=== PATIENT | female | born 1990 | race Caucasian/White ===

== ENCOUNTER 2019-02-28 06:07 | Day surgery (SDC) | payer MEDICAID ==
[2019-02-28] VITALS (11 sets, daily range): BP systolic 123–144; BP diastolic 69–97
[~2019-02-28] VITALS: Ht 162.6 cm; Wt 82.4 kg
[~2019-02-28 06:07] MED LIST: AMOX-358 PO; DOCU100C37 PO; IBUP-1780 PO; OXYC-465 PO
[2019-02-28] MEDS ORDERED: LACTATED RINGERS 1,000 ML IV PRN (06:16)
[2019-02-28] MEDS ORDERED: SEVOFLURANE (ULTANE) 15 ML INHAL SOLN ONE ×5 (06:49→08:16)
[2019-02-28] MEDS ORDERED: proPOfol 200 MG/20 ML (DIPRIVAN) VIAL IV ONE (06:49)
[2019-02-28] MEDS ORDERED: ONDANSETRON 4 MG/2 ML (SDV) Z0FRAN ONE (06:49)
[2019-02-28] MEDS ORDERED: MIDAZOLAM 2 MG/2 ML (VERSED) VIAL ONE (06:49)
[2019-02-28] MEDS ORDERED: LIDOCAINE PF 2% 5 ML (XYLOCAINE) VIAL ONE (06:49)
[2019-02-28] MEDS ORDERED: fentaNYL INJECTION 100 MCG/2 ML AMP ONE (06:49)
[2019-02-28] MEDS ORDERED: DEXAMETHASONE 10 MG/ML (DECADRON) 1 ML VIAL ONE (06:49)
[2019-02-28] MEDS ORDERED: DOXYCYCLINE INJECTION 100 MG in NS (IVPB) 100 ML IV ONE (07:00)
--- NOTE | 2019-02-28 07:08 | Progress Note-Pre Operative ---
Pre-Operative Progress Note H&P Reviewed The H&P was reviewed, patient examined and no changes noted. Date Seen by Provider: Feb 28, 2019 Time Seen by Provider: 07:10 Date H&P Reviewed: Feb 28, 2019 Time H&P Reviewed: 07:00 Pre-Operative Diagnosis: 17 week IUFD YAMILET BERRY DO Feb 28, 2019 07:08
[2019-02-28] MEDS ORDERED: D5 LR IV SOLUTION 1,000 ML IV SCH (07:12)
[2019-02-28] MEDS ORDERED: KETOROLAC 30 MG/ML VIAL IVP ONE (07:15)
[2019-02-28] MEDS ORDERED: HYDROcodone/APAP 5 MG/325 MG (LORTAB) TAB PO PRN (07:15)
[2019-02-28] MEDS ORDERED: ONDANSETRON 4 MG/2 ML (SDV) Z0FRAN IVP PRN ×2 (07:15→08:00)
[2019-02-28] MEDS ORDERED: HYDR-4226 PO (07:17)
[2019-02-28] MEDS ORDERED: ALPR0.5T PO (07:17)
[2019-02-28] MEDS ORDERED: IBUP-1773 PO (07:17)
--- NOTE | 2019-02-28 07:18 | Discharge Inst-Women's Service ---
Discharge Inst-Women's Serv Depart Medication/Instructions New, Converted or Re-Newed RX: RX on Chart Problems Reviewed?: Yes Consults/Follow Up Additional Follow Up: Yes Orders/Referrals Dr. Berry in 2-3 weeks Activity Activity: Activity as Tolerated Driving Instructions: No Driving for 1 Week (do not drive while taking Xanax or Hydrocodone) NO SMOKING: NO SMOKING Nothing Inside Vagina: No Douching, No [place], No Tampons Diet Discharge Diet: No Restrictions Symptoms to Report to : Bleeding Excessive, Pain Increased, Fever Over 101 Degrees F, Vaginal Bleeding Increase, Questions/Concerns For Any Problems or Questions: Contact Your Physician YAMILET BERRY DO Feb 28, 2019 07:18
[2019-02-28] MEDS ORDERED: METHYLERGONOVINE 0.2 MG/ML (METHERGINE) AMP ONE ×2 (07:33→07:36)
[2019-02-28] MEDS ORDERED: CARBOPROST (HEMABATE) 250 MCG/ML AMP IM ONE ×2 (07:33→07:36)
[2019-02-28] MEDS ORDERED: fentaNYL INJECTION 100 MCG/2 ML AMP IVP ONE (08:00)
[2019-02-28] MEDS ORDERED: MEPERIDINE (DEMEROL) INJ 50 MG/ML IVP ONE (08:00)
[2019-02-28] MEDS ORDERED: morphine INJ 10 MG/ML 1ML (SYR OR VIAL) IVP ONE (08:00)
[2019-02-28] MEDS ORDERED: OXYTOCIN PRE-MIX DRIP 500 ML IV SCH (08:15)
--- NOTE | 2019-02-28 15:52 | OPERATIVE REPORT ---
DATE OF SERVICE: 02/28/2019 PREOPERATIVE DIAGNOSIS: A 29-year-old female with 17-week intrauterine demise. POSTOPERATIVE DIAGNOSIS: A 29-year-old female with 17-week intrauterine demise. PROCEDURE: Dilatation and evacuation of demise . SURGEON: Yamilet Berry DO ANESTHESIA: General endotracheal. ESTIMATED BLOOD LOSS: 750 mL. URINE OUTPUT: 50 mL, clear drained at the start of the procedure. FLUIDS: 850 mL of lactated Ringer's solution. FINDINGS: Products of conception consistent with a 17-week fetus. Grossly normal appearing external female genitalia, vagina and cervix. SPECIMEN SENT: Products of conception including placenta and fetus, which was removed. INDICATIONS FOR PROCEDURE: This 29-year-old female is a patient, who was following care in my office. She had an abnormal quad screen and inconclusive free cell DNA testing performed at approximately 15 weeks. Due to this abnormal finding, she was sent to [facility] for further evaluation and offering of amniocentesis. At her consultation appointment at , there was found to be an intrauterine demise and no cardiac activity noted. They discussed with her as well as I did proceeding with genetics testing for suspicion of underlying Efubh-Yaogo-Wxcpg syndrome or possibility of aneuploidy. The patient declined this testing and was again offered in my office when I saw her three days later. She just wished to proceed with removal of the . We also discussed more conservative management, which would be an admission for passing of the under anesthesia including oral Cytotec dosing. The patient opted out of this and wanted to proceed with D and E despite slightly higher risk of bleeding and complication. After all of her questions were answered and consent was obtained in the preoperative area, the patient was taken to the operating room. OPERATIVE REPORT IN DETAIL: Once in the operating room, anesthesia was found to be adequate. She was placed in dorsal lithotomy position, prepped and draped in normal sterile fashion. A timeout was performed. I first emptied the bladder using straight catheterization and proceeded with placing a weighted speculum into the patient's vagina. A right angle retractor was used to visualize the cervix. It was grasped at 12 o'clock position using a long Allis clamp. I then gently dilated the cervix using Vanessa dilators to a maximum dilatation of 18 mm. Once it is dilated to this size, I proceeded with passing a curved ring forcep into the intrauterine cavity and began by removing the placenta and the components. They do not come out all in one piece and this has to be down in separate pieces. However, I am able to confirm calvarium, abdomen, lower torso, bilateral lower extremities and bilateral upper extremities. After the entirety of the fetus was removed, reevaluation of the endometrial cavity does show some bogginess, 250 mcg of Hemabate and 0.2 mg of Methergine are given IM, which helped significantly with the bleeding. I also started the patient on 30 units of Pitocin in a 500 mL bag and this was ran wide open. During this, the bleeding does slowly subside and the uterine fundus does come down to approximately an 8 to 10 week size during the process. Once the bleeding slows down, I did go ahead and placed two ligation sutures at 3 and 9 o'clock position using 0 Vicryl suture to slow down the uterine blood flow after which bleeding has slowed to a significantly slow trickle. At which point, I proceeded with a gentle curettage using a sharp endometrial curette. Actually, I also did two passes with the Warren suction curette of 12 mm at that point in order to clear any residual products of conception, which are not found. After this, there was little to no bleeding noted and all the instruments were removed from the patient's vagina. The patient tolerated the procedure well and sent to recovery in stable condition. Lap and sponge counts were correct at the end of the procedure. Instrument counts were correct as well. 100 mg of doxycycline was given preoperatively for infection prophylaxis. Job ID: [id number] DocumentID: [id number] Dictated Date: 02/28/2019 11:55:59 Engineering Specialist Technician Date: 02/28/2019 15:51:30 Dictated By: YAMILET BERRY DO
--- NOTE | 2019-02-28 15:53 | Anesthesia-General Post-Op ---
General Patient Condition Mental Status/LOC: Same as Preop Cardiovascular: Satisfactory Nausea/Vomiting: Absent Respiratory: Satisfactory Pain: Controlled Complications: Absent Post Op Complications Complications None Follow Up Care/Instructions Patient Instructions None needed. Anesthesia/Patient Condition Patient Condition Patient is doing well, no complaints, stable vital signs, no apparent adverse anesthesia problems. No complications reported per nursing. IVELISSE NARVAEZ CRNA Feb 28, 2019 15:53
--- OUTSIDE RECORDS SUMMARY | 2019-03-22 21:56 | XMS REPORT ---
Author Author MARILUZ MARC POS Organization [facility] SP Address [address] [place] [address] SP Care Team Providers Care Emt Basic Name Role Phone POS NESSA MARCA Unavailable SP PROBLEMS Type Condition ICD9-CM Code WIC06-MW Code Onset Dates Condition S tatus SNOMED POS Problem Anxiety F41.9 Active 99232410 POS Problem Other obesity due to excess calories E66.09 Active [id number] SP Problem Body mass index (BMI) of 32.0-32.9 in adult Z68.32 Active [id number] SP ALLERGIES No Information ENCOUNTERS Encounter Location Date Diagnosis POS [facility] [address] [id number] [address] [place] [id number] SP Jan, Viral upper respiratory infe ction J06.9 and Impacted cerumen of SP ears H61.23 [facility] [address] [id number] [address] [place] [address] SP Nov, Acute bilateral back pain, u nspecified back location M54.9 SP [facility] [address] [id number] [address] [place] [address] SP Oct, Heart palpitations R00.2 [facility] [address] [id number] [address] [place] [id number] SP Aug, Anxiety F41.9 ; Heart palpit ations R00.2 ; Marijuana use in SP F12.90 ; Other obesity due to excess calories E66.09 and Body mass index (BMI) of 32.0-32.9 in adult Z68.32 [facility] [address] [facility] [id number] [address] [place] [address] SP Jun, Heart palpitations R00.2 [facility] [address] [facility] [id number] [address] [place] [id number] SP Feb, Encounter for dental examina tion and cleaning without abnormal SP Z01.20 [facility] [address] [id number] [address] [place] [id number] SP Nov, Dental examination Z01.20 SP [facility] [address] [id number] [address] [place] [id number] SP Nov, Dental examination Z01.20 SP [facility] [address] [id number] [place] [id number] SP Mar, Encounter for dental examina tion Z01.20 SP [facility] [address] [id number] SP Jan, SP [facility] [id number] [place] [phone] SP Oct, Social anxiety disorder 300. 23 and Attention deficit disorder SP [facility] [address] [id number] SP September, SP [facility] [address] [id number] SP September, Social anxiety disorder 300. 23 and Attention deficit disorder SP [facility] [address] [phone] SP September, School physical exam V70.5 a nd Screening for tuberculosis V74.1 SP [facility] [address] [phone] SP September, Major depression, recurrent 296.30 ; Anxiety 300.00 and No SP on [place] V71.09 [facility] [address] [phone] SP Aug, SP [facility] [id number] [place] [phone] SP Aug, SP [facility] [address] [id number] SP Jul, SP [facility] [address] [id number] [address] [place] [address], [place] [address] SP Jul, SP [facility] [address] [id number] [address] [place] [address], [place] [address] SP Jul, SP [facility] [address] [id number] [address] [place] [address], [place] [address] SP Jul, SP [facility] [address] [id number] [address] [place] [address], [place] [address] SP Jul, SP [facility] [address] [id number] [address] [place] [address], [place] [address] SP Jul, SP [facility] [address] [id number] [address] [place] [address], [place] [address] SP Jul, SP [facility] [address] [id number] [address] [place] [address], [place] [address] SP Jul, SP [facility] [address] [id number] [address] [place] [address], [place] [address] SP Jul, SP [facility] [address] [id number] [address] [place] [address], [place] [address] SP Jul, SP [facility] [address] [id number] [address] [place] [address], [place] [address] SP Jul, SP [facility] [address] [id number] [address] [place] [address], [place] [address] SP Jul, SP [facility] [address] [id number] [address] [place] [address], [place] [address] SP Jul, SP [facility] [address] [id number] [address] [place] [address], [place] [address] SP Jun, SP [facility] [address] [id number] [address] [place] [address], [place] [address] SP Jun, SP [facility] [address] [id number] [address] [place] [address], [place] [address] SP Jun, 2014 SP [facility] [address] [id number] [address] [place] [address], [place] [address] SP Jun, 2014 SP [facility] [address] [id number] [address] [place] [address], [place] [address] SP Jun, 2014 SP [facility] [address] [id number] [address] [place] [address], [place] [address] SP Jun, 2014 SP [facility] [address] [id number] [address] [place] [address], [place] [address] SP Jun, 2014 SP [facility] [address] [id number] [address] [place] [address], [place] [address] SP Jun, 2014 SP [facility] [address] [id number] [address] [place] [phone] SP Jun, 2014 SP [facility] [address] [id number] [address] [place] [address], [place] [address] SP Jun, SP [facility] [address] [id number] [address] [place] [address], [place] [address] SP May, SP [facility] [address] [id number] [address] [place] [phone] SP May, SP [facility] [address] [id number] [address] [place] [id number] SP May, SP [facility] [address] [id number] [address] [place] [phone] SP May, SP [facility] [address] [id number] [address] [place] [address], [place] [address] SP Jan, SP [facility] [address] [id number] [address] [place] [id number] SP Jan, SP [facility] [address] [id number] [address] [place] [id number] SP Aug, SP [facility] [address] [id number] [address] [place] [address], [place] [address] SP Aug, SP [facility] [address] [id number] [address] [place] [address], [place] [address] SP Aug, SP [facility] [address] [id number] [address] [place] [address], [place] [address] SP Aug, SP [facility] [address] [id number] [address] [place] [address], [place] [address] SP May, SP [facility] [address] [id number] [address] [place] [address], [place] [address] SP May, SP [facility] [address] [id number] [address] [place] [address], [place] [address] SP Feb, SP [facility] [address] [id number] [address] [place] [address], [place] [address] SP Feb, SP [facility] [address] [id number] [address] [place] [address], [place] [address] SP Feb, SP [facility] [address] [id number] [address] [place] [address], [place] [address] SP Feb, SP [facility] [address] [id number] [address] [place] [address], [place] [address] SP Feb, SP [facility] [address] [id number] [address] [place] [address], [place] [address] SP Dec, SP [facility] [address] [id number] [address] [place] [address], [place] [address] SP Oct, SP [facility] [address] [id number] [address] [place] [address], [place] [address] SP September, SP [facility] [address] [id number] [address] [place] [address], [place] [address] SP Aug, SP [facility] [address] [id number] [address] [place] [phone] SP Nov, SP [facility] [address] [facility] [id number] [address] [place] [phone] SP Nov, SP [facility] [address] [facility] [id number] [address] [place] [phone] SP Nov, SP IMMUNIZATIONS No Known Immunizations SOCIAL HISTORY Never Assessed REASON FOR VISIT PLAN OF CARE VITAL SIGNS MEDICATIONS No Known Medications RESULTS No Results PROCEDURES No Known procedures INSTRUCTIONS MEDICATIONS ADMINISTERED No Known Medications MEDICAL (GENERAL) HISTORY Type Description Date POS Medical History anxiety SP Hospitalization History healthy 2015 SP
--- OUTSIDE RECORDS SUMMARY | 2019-03-22 21:56 | XMS REPORT | Encounter Summary ---
Author Author [facility] POS Organization [facility] SP Address Unknown SP Phone Unavailable SP Care Team Providers Care Heel Attacher Name Role Phone POS No Pcp, Na PCP Unavailable SP Reason for Visit * Reason Comments POS High Risk SP Problem SP Ultrasound SP Encounter Details Care Team Description POS Date Type Department SP SP Jose Martel MD [address] [facility] [address] [place] [address] Abnormal findings on screening (Primary Dx); SPFetal demise before 20 weeks with retention of fetus 02/27/2019 Office Visit [facility] SP [address] SP Level [address] [place] [phone] SP [phone] SP Social History Date POS Tobacco Use Types Packs/Day Years Used SP SP Never Assessed SP Sex Assigned at Date Recorded SP Not on file SP Industry POS Job Start Date Occupation SP Not on file SP Not on file Not on file SP Travel End POS Travel History Travel Start SP No recent travel history available. SP documented as of this encounter Progress Notes * Jose Martel MD - 02/23/2019 11:00 AM CDT MFM CONSULT Patient seen and interviewed. Relevant health histories obtained. Referred by Dr Vasquez after a QUAD returned with a 1:5 risk for Trisomy 18 and an increased risk for Bvjjs-Vqcmm-Kurrd Syndrome. IUFD discovered today associated with israel y onset IUGR. The couple was understandably sad and stunned. I spent more than 45min face to face independent of scan time discussing the findings and the lik sadie presence of aneuploidy along with its implication for future pregnancies. W morgan discussed the options going forward. I suggested a D&E with testing of material with a microarray. I offered to make the arrangements, but the couple preferred to return home and think about it over the weekend. Telephone numbers provided. Please let us know if we can be of any assistance. documented in this encounter Plan of Treatment Not on filedocumented as of this encounter Visit Diagnoses Diagnosis POS Abnormal findings on screenin g - Primary SP demise before 20 weeks with reten tion of fetus SP documented in this encounter
--- OUTSIDE RECORDS SUMMARY | 2019-03-22 21:56 | XMS REPORT | Encounter Summary ---
Author Author [facility] POS Organization [facility] SP Address Unknown SP Phone Unavailable SP Care Team Providers Care Clinical Mental Health Counselor Name Role Phone POS No Pcp, Na Unavailable Unavailable SP No Pcp, Na PCP Unavailable SP Reason for Visit * Reason Comments POS Ultrasound SP * Consult, Test & Treat (Routine) Referred By Contact Referred To Contact POS Status Reason Specialty Diagnoses / SP Procedures SP SP SP [employer] [facility] [address] [place] [address] Closed High Risk Diagnoses SP ABNORMAL QUAD SP +TRISOMY 18 SP P SP rocedures SP GENETICS-NEW SP CONSULT SP Encounter Details Care Team Description POS Date Type Department SP SP Jose Martel MD [address] [facility] Lvl [address] [place], [place] [id number] Abnormal findings on screening (Primary Dx); SPMaternal care for (suspected) chromosomal abnormality in fetus, not applicable or unspecified; Encounter for screening for malformations 02/23/2019 Clinical [facility] SP [address] SP [address] [place] [phone] SP [phone] SP Social History Date POS Tobacco Use [...] as of this encounter Progress Notes * Viviana Viera - 02/23/2019 10:30 AM CDT Aspen Alex presents for an ultrasound encounter. Past Medical, Surgical, Family & Social History; Medications & Allergies contained in the electronic record below were not reviewed today and may not be up-to-date. Please see A/S OBGYN report for all documentation related to this encounter. 02/23/2019 Viviana Viera documented in this encounter Plan of Treatment Not on filedocumented as of this encounter Procedures Comments POS Procedure Name Priority Date/Time Associated Diag nosis SP SP ULTRASOUND [facility] Routine 02/23/2019 Abnorma l findings on SP ORDER 10:01 AM CDT screening SP Maternal care for SP (suspected) chromosomal SP abnormality in fetus, not SP applicable or unspecified SP Encounter for SP screening for SP malformations SP documented in this encounter Results * ULTRASOUND [facility] ORDER (02/23/2019 10:01 AM CDT) Specimen POS Impressions Performed At SP IMPRESSION: [facility] SP Femur length consistent with 17 weeks 2 days, SP compared to 20 weeks 0 days by RASHAAD. SP No or cardiac activity visualized . SP Ultrasound findings demonstrative of fe penelope demise. SP SP RECOMMENDATIONS: SP Repeat as clinically indicated. SP Thank-you for allowing us to participat e in the care of SP your patient.If you have any questi ons regarding this SP visit, please do not hesitate to call. SP Narrative Performed At [facility] SP SP OBSTETRICS REPORT (Signed Final 02/27/2019 SP 12:10 pm) SP SP PATIENT INFO: SP ID #: [id number] TOBIAS :[birth year] (29 yrs)(F) SP Name: ASPEN ALEX Visit Date: SP 02/23/2019 10:01 am SP SP PERFORMED BY: SP Performed By: Viviana COLLADO Attending:Jose COLLADO Referred By:Yonas Vasquez MD SP Ref. 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 Location: Intraut erine SP Cardiac Activity: Not Obser kaia SP Presentation: Cepha lic SP Placenta: P osterior SP SP BIOMETRY: SP FL: 24.1mm G.Ag e: 17w 2d < 3% SP HUM:22.6mm G.Ag e: 17w 0d < 5% SP SP GESTATIONAL AGE: SP Clinical RASHAAD:20w SP 0d RASHAAD: SP 07/13/19 SP U/S Today: 17w SP 2d RASHAAD: SP 08/01/19 SP Best:20w 0d Det . By:Clinical RASHAAD SP RASHAAD: 07/13/19 SP SP COMMENTS: SP MFM CONSULT SP Patient seen and interviewed.[facility] SP histories obtained.Referred by Dr Gustavo pepper after a SP QUAD returned with a 1:5 risk for Triso my 18 and an SP increased risk for Otjwa-Osika-Agixz Sy ndrome.IUFD SP discovered today associated with early onset IUGR. SP The couple was understandably sad and s tunned.I SP spent more than 45min face to face inde pendent of SP scan time discussing the findings and t he likely SP presence of aneuploidy along with its i mplication for SP future pregnancies.We discussed the options going SP forward.I suggested a D&E with test ing of material SP with a microarray.I offered to make the arrangements, SP but the couple preferred to return home and think about SP it over the weekend.Telephone numbe rs provided. SP Please let us know if we can be of any assistance. SP Procedure orders were added/modified by the SP attending physician listed above with p ermission from SP the referring physician. Previously ent ered orders will SP not be altered. SP SP SP Jose Martel M.D. SP Electronically Signed Final Report 02/27/2019 12:10 pm SP SP Performing Organization Address City/State[facility] Ph one Number SP [facility] [id number] [facility], [address] [place] [address] SP documented in this encounter Visit Diagnoses Diagnosis POS Abnormal findings on screenin g - Primary SP Maternal care for (suspected) chromosom al abnormality in fetus, not applicable SP unspecified Encounter for screening for m alformations SP documented in this encounter
--- OUTSIDE RECORDS SUMMARY | 2019-03-22 21:56 | XMS REPORT | Clinical Summary ---
Author Author [facility] POS Organization [facility] SP Address Unknown SP Phone Unavailable SP Care Team Providers Care Pathology Assistant Name Role Phone POS No Pcp, Na PCP Unavailable SP Source Comments Some departments are not documenting in the electronic medical record. 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 02/27/2019 Office Visit High Risk SP SP Jose Martel MD Abnormal findings on screening (Primary Dx); SPMaternal care for (suspected) chromosomal abnormality in fetus, not applicable or unspecified; Encounter for screening for malformations 02/23/2019 Clinical High Risk SP Support SP from Last 3 Months Social History Date POS Tobacco Use Types Packs/Day Years Used SP SP Never Assessed SP Sex Assigned at Date Recorded SP Not on file SP Industry POS Job Start Date Occupation SP Not on file SP Not on file Not on file SP Travel End POS Travel History Travel Start SP No recent travel history available. SP Last Filed Vital Signs Not on file Plan of Treatment Health Maintenance Due Date Last Done Comments POS HIV SCREENING 01/31/2007 SP HPV VACCINES (3 - Female 05/23/2009 01/21/2009, 0 11/20/2008 SP 3-dose series) SP DTAP/TDAP VACCINES (1 - 01/31/2010 SP Tdap) SP PHYSICAL (COMPREHENSIVE) 01/31/2010 SP EXAM SP CERVICAL CANCER SCREENING 01/31/2013 SP INFLUENZA VACCINE 12/14/2018 SP Procedures Comments POS Procedure Name Priority Date/Time Associated Diag cherrie COLLADO SP [facility] Routine 02/23/2019 Abnorma l findings on SP ORDER 10:01 AM CDT screening SP Maternal care for SP (suspected) chromosomal SP abnormality in fetus, not SP applicable or unspecified SP Encounter for SP screening for SP malformations SP from Last 3 Months Results * ULTRASOUND [facility] ORDER (02/23/2019 10:01 AM CDT) Specimen POS Impressions Performed At IMPRESSION: [facility] RESULTS SP Femur length consistent with 17 [...] SP SP PATIENT INFO: SP ID #: [id number] SP :[birth year] (29 yrs)(F) SP Name: ASPEN ALEX Visit Date: SP 02/23/2019 10:01 am SP SP PERFORMED BY: SP Performed By: Viviana COLLADO Attending:Jose Martel M.D. SP Referred By:Yonas Vasquez MD SP Ref. 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 Location: Intraut erine SP Cardiac Activity: Not Obser kaia SP Presentation: Winston COLLADO Placenta: P osterioleti SP SP BIOMETRY: SP FL: 24.1mm G.Ag e: 17w 2d < 3% SP HUM:22.6mm G.Ag e: 17w 0d < 5% SP SP GESTATIONAL AGE: SP Clinical RASHAAD:20w SP 0d RASHAAD: SP 07/13/19 SP U/S Today: 17w SP 2d RASHAAD: SP 08/01/19 SP Best:20w 0d Det . By:Clinical RASHAAD SP RASHAAD: 07/13/19 SP SP COMMENTS: SP MFM CONSULT SP Patient seen and interviewed.[facility] SP histories obtained.Referred by Dr Gustavo pepper after a SP QUAD returned with a 1:5 risk for Triso my 18 and an SP increased risk for Xqqza-Quzfq-Lkmjx Sy ndrome.IUFD SP discovered today associated with [...] 12:10 pm SP SP Performing Organization Address City/State/[facility] Ph one Number SP [facility] [address] [place] [address], [place] [address] SP from Last 3 Months Insurance Type POS Payer Benefit Subscriber ID Effective Phone Address SP Plan / Dates SP Group SP Medicaid SP [facility] MEDICAID [facility] xxxxxxxxxxx 2018-P SP COMMUNITY resent SP PLAN MA SP SP Advance Directives 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
--- OUTSIDE RECORDS SUMMARY | 2019-03-22 21:56 | XMS REPORT ---
Author Author MARILUZ MARC POS Organization [facility] SP Address [address] [place] [address] SP Care Team Providers Care Communications Technician Name Role Phone POS NESSA MARCA Unavailable SP PROBLEMS Type Condition ICD9-CM Code WCL90-VA Code Onset Dates Condition S tatus SNOMED POS Problem Anxiety F41.9 Active 56597399 POS Problem Other obesity due to excess calories E66.09 Active 404753427 SP Problem Body mass index (BMI) of 32.0-32.9 in adult Z68.32 Active 794242367 SP ALLERGIES No Information ENCOUNTERS Encounter Location Date Diagnosis POS [facility] [address] [id number] [address] [place] [phone] SP Jan, Viral upper respiratory infe ction J06.9 and Impacted cerumen of SP ears H61.23 [facility] [address] [id number] [address] [place] [address] SP Nov, Acute bilateral back pain, u nspecified back location M54.9 SP [facility] [address] [id number] [address] [place] [address] SP Oct, Heart palpitations R00.2 [facility] [address] [id number] [address] [place] [phone] SP Aug, Anxiety F41.9 ; Heart palpit ations R00.2 ; Marijuana use in SP F12.90 ; Other obesity due to excess calories E66.09 and Body mass index (BMI) of 32.0-32.9 in adult Z68.32 [facility] [address] [facility] [id number] [address] [place] [address] SP Jun, Heart palpitations R00.2 [facility] [address] [facility] [id number] [address] [place] [address] [id number] SP Feb, Encounter for dental examina tion and cleaning without abnormal SP Z01.20 [facility] [address] [id number] [address] [place] [id number] SP Nov, Dental examination Z01.20 SP [facility] [address] [id number] [address] [place] [id number] SP Nov, Dental examination Z01.20 SP [facility] [id number] [place] [id number] SP Mar, Encounter for dental examina tion Z01.20 SP [facility] [address] [address] SP Jan, SP [facility] [id number] [place] [address] SP Oct, Social anxiety disorder 300. 23 and Attention deficit disorder SP [facility] [address] [id number] SP September, SP [facility] [address] [address] SP September, Social anxiety disorder 300. 23 and Attention deficit disorder SP [facility] [address] [phone] SP September, School physical exam V70.5 a nd Screening for tuberculosis V74.1 SP [facility] [address] [id number] SP September, Major depression, recurrent 296.30 ; Anxiety 300.00 and No SP on [place] II V71.09 [facility] [address] [id number] SP Aug, SP [facility] [id number] [place] [phone] SP Aug, SP [facility] [address] [address] SP Jul, SP [facility] [address] [id number] [address] [place] [address], [place] [address] SP Jul, SP [facility] [address] [id number] [address] [place] [address], [place] [address] SP Jul, SP [facility] [address] [id number] [address] [place] [address], [place] [address] SP Jul, SP [facility] [address] [id number] [address] [place] [address], [place] [address] SP Jul, SP [facility] [address] [id number] [address] [place] [address], [place] [address] SP Jul, SP [facility] [address] [id number] [address] [place] [address], [place] [address] SP Jul, SP [facility] [address] [id number] [address] [place] [address], [place] [address] SP Jul, SP [facility] [address] [id number] [address] [place] [address], [place] [address] SP Jul, SP [facility] [address] [id number] [address] [place] [address], [place] [address] SP Jul, SP [facility] [address] [id number] [address] [place] [address], [place] [address] SP Jul, SP [facility] [address] [id number] [address] [place] [address], [place] [address] SP Jul, SP [facility] [address] [id number] [address] [place] [address], [place] [address] SP Jul, SP [facility] [address] [id number] [address] [place] [address], [place] [address] SP Jun, SP [facility] [address] [id number] [address] [place] [address], [place] [address] SP Jun, SP [facility] [address] [id number] [address] [place] [address], [place] [address] SP Jun, 2014 SP [facility] [address] [id number] [address] [place] [address], [place] [address] SP Jun, 2014 SP [facility] [address] [id number] [address] [place] [address], [place] [address] SP Jun, 2014 SP [facility] [address] [id number] [address] [place] [address], [place] [address] SP Jun, 2014 SP [facility] [address] [id number] [address] [place] [address], [place] [address] SP Jun, 2014 SP [facility] [address] [id number] [address] [place] [address], [place] [address] SP Jun, 2014 SP [facility] [address] [id number] [address] [place] [address] SP Jun, 2014 SP [facility] [address] [id number] [address] [place] [address], [place] [address] SP Jun, SP [facility] [address] [id number] [address] [place] [address], [place] [address] SP May, SP [facility] [address] [id number] [address] [place] [address] SP May, SP [facility] [address] [id number] [address] [place] [address] SP May, SP [facility] [address] [id number] [address] [place] [address] SP May, SP [facility] [address] [id number] [address] [place] [address], [place] [address] SP Jan, SP [facility] [address] [id number] [address] [place] [address] SP Jan, SP [facility] [address] [id number] [address] [place] [address] SP Aug, SP [facility] [address] [id number] [address] [place] [address], [place] [address] SP Aug, SP [facility] [address] [id number] [address] [place] [address], [place] [address] SP Aug, SP [facility] [address] [id number] [address] [place] [address], [place] [address] SP Aug, SP [facility] [address] [id number] [address] [place] [address], [place] [address] SP May, SP [facility] [address] [id number] [address] [place] [address], [place] [address] SP May, SP [facility] [address] [id number] [address] [place] [address], [place] [address] SP Feb, SP [facility] [address] [id number] [address] [place] [address], [place] [address] SP Feb, SP [facility] [address] [id number] [address] [place] [address], [place] [address] SP Feb, SP [facility] [address] [id number] [address] [place] [address], [place] [address] SP Feb, SP [facility] [address] [id number] [address] [place] [address], [place] [address] SP Feb, SP [facility] [address] [id number] [address] [place] [address], [place] [address] SP Dec, SP [facility] [address] [id number] [address] [place] [address], [place] [address] SP Oct, SP [facility] [address] [id number] [address] [place] [address], [place] [address] SP September, SP [facility] [address] [id number] [address] [place] [address], [place] [address] SP Aug, SP [facility] [address] [id number] [address] [place] [address] SP Nov, SP [facility] [address] [facility] [id number] [address] [place] [address] SP Nov, SP [facility] [address] [facility] [id number] [address] [place] [address] SP Nov, SP IMMUNIZATIONS No Known Immunizations SOCIAL HISTORY Never Assessed REASON FOR VISIT PLAN OF CARE VITAL SIGNS MEDICATIONS No Known Medications RESULTS No Results PROCEDURES No Known procedures INSTRUCTIONS MEDICATIONS ADMINISTERED No Known Medications MEDICAL (GENERAL) HISTORY Type Description Date POS Medical History anxiety SP Hospitalization History healthy 2015 SP
--- OUTSIDE RECORDS SUMMARY | 2019-03-22 21:56 | XMS REPORT ---
Author Author MARILUZ MARC POS Organization [facility] SP Address [facility] [place] [address] SP Care Team Providers Care Butcher Meat Name Role Phone POS MARILUZ MARC Unavailable SP PROBLEMS ALLERGIES No Information ENCOUNTERS IMMUNIZATIONS No Known Immunizations SOCIAL HISTORY No smoking Hx information available REASON FOR VISIT PLAN OF CARE VITAL SIGNS MEDICATIONS No Known Medications RESULTS No Results PROCEDURES INSTRUCTIONS MEDICATIONS ADMINISTERED No Known Medications MEDICAL (GENERAL) HISTORY
--- OUTSIDE RECORDS SUMMARY | 2019-03-22 21:57 | XMS REPORT ---
Author Author MARILUZ MARC POS Organization [facility] SP Address [address] [place] [address] SP Care Team Providers Care Software Test Engineer Name Role Phone POS MARILUZ MARC Unavailable SP PROBLEMS Type Condition ICD9-CM Code RUN48-[place] Code Onset Dates Condition S tatus SNOMED POS Problem Anxiety F41.9 Active 62719778 POS Problem Other obesity due to excess calories E66.09 Active 282737502 SP Problem Body mass index (BMI) of 32.0-32.9 in adult Z68.32 Active 204044198 SP ALLERGIES No Information ENCOUNTERS Encounter Location Date Diagnosis POS [facility] [address] [facility] [id number] [address] [place] [address] SP Nov, Acute bilateral back pain, u nspecified back location M54.9 SP [facility] [address] [facility] [id number] [place] [address] SP Oct, Heart palpitations R00.2 SP [facility] [address] [facility] [id number] [address] [place] [phone] SP Aug, Anxiety F41.9 ; Heart palpit ations R00.2 ; Marijuana use in SP F12.90 ; Other obesity due to excess calories E66.09 and Body mass index (BMI) of 32.0-32.9 in adult Z68.32 [facility] [address] [facility] [id number] [address] [place] [address] SP Jun, Heart palpitations R00.2 SP [facility] [address] [facility] [id number] [address] [place] [address] [id number] SP 05 Feb, 2016 Encounter for dental examina tion and cleaning without abnormal SP Z01.20 [facility] [address] [id number] [address] [place] [id number] SP Nov, Dental examination Z01.20 SP [facility] [address] [id number] [place] [id number] SP Nov, Dental examination Z01.20 SP [facility] [address] [id number] [address] [place] [id number] SP Mar, Encounter for dental examina tion Z01.20 SP [facility] [address] [facility] [id number] [address] [place] [phone] SP Jan, SP [facility] [address] [facility] [id number] [address] [place] [address] SP Oct, Social anxiety disorder 300. 23 and Attention deficit disorder SP [facility] [address] [facility] [id number] [address] [place] [address] SP September, SP [facility] [address] [facility] [id number] [address] [place] [address] SP September, Social anxiety disorder 300. 23 and Attention deficit disorder SP [facility] [address] [facility] [id number] [address] [place] [id number] SP September, School physical exam V70.5 a nd Screening for tuberculosis V74.1 SP [facility] [address] [facility] [id number] [address] [place] [address] SP September, Major depression, recurrent 296.30 ; Anxiety 300.00 and No SP on [place] II V71.09 [facility] [address] [facility] [id number] [address] [place] [phone] SP Aug, SP [facility] [address] [facility] [id number] [address] [place] [address] SP Aug, SP [facility] [address] [facility] [id number] [address] [place] [address] SP Jul, SP [facility] [address] [facility] [id number] [address] [place] [address] SP Jul, SP [facility] [address] [id number] [facility] [place] [address] SP Jul, SP [facility] [address] [id number] [address] [place] [address], [place] [address] SP Jul, SP [facility] [address] [id number] [address] [place] [address], [place] [address] SP Jul, SP [facility] [address] [id number] [address] [place] [address], [place] [address] SP Jul, SP [facility] [address] [id number] [address] [place] [address], [place] [address] SP Jul, SP [facility] [address] [id number] [address] [place] [address], [place] [address] SP Jul, SP [facility] [address] [id number] [address] [place] [address], [place] [address] SP Jul, 2014 SP [facility] [address] [id number] [address] [place] [address], [place] [address] SP Jul, SP [facility] [address] [id number] [address] [place] [address], [place] [address] SP Jul, SP [facility] [address] [id number] [address] [place] [address], [place] [address] SP Jul, SP [facility] [address] [id number] [address] [place] [address], [place] [address] SP Jul, SP [facility] [address] [id number] [address] [place] [address], [place] [address] SP Jun, SP [facility] [address] [id number] [address] [place] [address], [place] [address] SP Jun, 2014 SP [facility] [address] [id number] [address] [place] [address], [place] [address] SP Jun, SP [facility] [address] [id number] [address] [place] [address], [place] [address] SP Jun, 2014 SP [facility] [address] [id number] [address] [place] [address], [place] [address] SP Jun, 2014 SP [facility] [address] [id number] [address] [place] [address], [place] [address] SP Jun, 2014 SP [facility] [address] [id number] [address] [place] [address], [place] [address] SP Jun, 2014 SP [facility] [address] [id number] [address] [place] [address], [place] [address] SP Jun, 2014 SP [facility] [address] [id number] [address] [place] [address], [place] [address] SP Jun, 2014 SP [facility] [address] [id number] [address] [place] [address], [place] [address] SP Jun, 2014 SP [facility] [address] [id number] [address] [place] [address], [place] [address] SP May, SP [facility] [address] [id number] [address] [place] [address], [place] [address] SP May, SP [facility] [address] [id number] [address] [place] [address], [place] [address] SP May, SP [facility] [address] [id number] [address] [place] [address], [place] [address] SP May, SP [facility] [address] [id number] [address] [place] [address], [place] [address] SP Jan, SP [facility] [address] [id number] [address] [place] [address], [place] [address] SP Jan, SP [facility] [address] [id number] [address] [place] [address], [place] [address] SP Aug, SP [facility] [address] [id number] [address] [place] [address], [place] [address] SP Aug, SP [facility] [address] [id number] [address] [place] [address], [place] [address] SP Aug, SP [facility] [address] [id number] [address] [place] [address], [place] [address] SP Aug, SP [facility] [address] [id number] [address] [place] [address], [place] [address] SP May, SP [facility] [address] [id number] [address] [place] [address], [place] [address] SP May, SP [facility] [address] [id number] [address] [place] [address], [place] [address] SP Feb, SP [facility] [address] [id number] [address] [place] [address], [place] [address] SP Feb, SP [facility] [address] [id number] [address] [place] [address], [place] [address] SP Feb, SP [facility] [address] [id number] [address] [place] [address], [place] [address] SP Feb, SP [facility] [address] [id number] [address] [place] [address], [place] [address] SP Feb, SP [facility] [address] [id number] [address] [place] [address], [place] [address] SP Dec, SP [facility] [address] [id number] [address] [place] [address], [place] [address] SP Oct, SP [facility] [address] [id number] [address] [place] [address], [place] [address] SP September, SP [facility] [address] [id number] [address] [place] [address], [place] [address] SP Aug, SP [facility] [address] [id number] [address] [place] [address], [place] [address] SP Nov, SP [facility] [address] [id number] [address] [place] [address], [place] [address] SP Nov, SP [facility] [address] [facility] [id number] [address] [place] [address] SP Nov, SP IMMUNIZATIONS No Known Immunizations SOCIAL HISTORY Never Assessed REASON FOR VISIT PLAN OF CARE VITAL SIGNS MEDICATIONS No Known Medications RESULTS No Results PROCEDURES No Known procedures INSTRUCTIONS MEDICATIONS ADMINISTERED No Known Medications MEDICAL (GENERAL) HISTORY Type Description Date POS Medical History anxiety SP Hospitalization History healthy 2015 SP
--- OUTSIDE RECORDS SUMMARY | 2019-03-22 21:57 | XMS REPORT ---
Author Author Christiano JAYA POS Organization [facility] SP Address [address] [place] [address] SP Care Team Providers Care Activity Aide Name Role Phone POS JAYA Alvarado Unavailable SP PROBLEMS Type Condition ICD9-CM Code [id number] Code Onset Dates Condition S tatus SNOMED POS Problem Anxiety F41.9 Active 15450098 POS Problem Other obesity due to excess calories E66.09 Active 589724857 SP Problem Body mass index (BMI) of 32.0-32.9 in adult Z68.32 Active 221108852 SP ALLERGIES No Information ENCOUNTERS Encounter Location Date Diagnosis POS [facility] [address] [facility] [id number] [address] [place] [address] SP Nov, Acute bilateral back pain, u nspecified back location M54.9 SP [facility] [address] [facility] [id number] [place] [address] SP Oct, Heart palpitations R00.2 SP [facility] [address] [facility] [id number] [address] [place] [address] SP Aug, Anxiety F41.9 ; Heart palpit ations R00.2 ; Marijuana use in SP F12.90 ; Other obesity due to excess calories E66.09 and Body mass index (BMI) of 32.0-32.9 in adult Z68.32 [facility] [address] [facility] [id number] [address] [place] [address] SP Jun, Heart palpitations R00.2 SP [facility] [address] [id number] [address] [place] [address] [id number] SP Feb, Encounter for dental examina tion and cleaning without abnormal SP Z01.20 [facility] [address] [id number] [address] [place] [address] [id number] SP Nov, Dental examination Z01.20 SP [facility] [address] [id number] [address] [place] [address] [id number] SP Nov, Dental examination Z01.20 SP [facility] [address] [id number] [address] [place] [address] [id number] SP Mar, Encounter for dental examina tion Z01.20 SP [facility] [address] [facility] [id number] [address] [place] [phone] SP Jan, SP [facility] [address] [facility] [id number] [address] [place] [phone] SP Oct, Social anxiety disorder 300. 23 and Attention deficit disorder SP [facility] [address] [facility] [id number] [address] [place] [address] SP September, SP [facility] [address] [facility] [id number] [address] [place] [phone] SP September, Social anxiety disorder 300. 23 and Attention deficit disorder SP [facility] [address] [facility] [id number] [address] [place] [phone] SP September, School physical exam V70.5 a nd Screening for tuberculosis V74.1 SP [facility] [address] [facility] [id number] [address] [place] [address] SP September, Major depression, recurrent 296.30 ; Anxiety 300.00 and No SP on [place] II V71.09 [facility] [address] [facility] [id number] [address] [place] [phone] SP Aug, SP [facility] [address] [facility] [id number] [address] [place] [phone] SP Aug, SP [facility] [address] [facility] [id number] [address] [place] [phone] SP Jul, SP [facility] [address] [facility] [id number] [address] [place] [phone] SP Jul, SP [facility] [address] [id number] [facility] [place] [address] SP Jul, SP [facility] [address] [id number] [address] [place] [address], [place] [address] SP Jul, SP [facility] [address] [id number] [address] [place] [address], [place] [address] SP Jul, SP [facility] [address] [id number] [address] [place] [address], [place] [address] SP Jul, SP [facility] [address] [id number] [address] [place] [address], [place] [address] SP Jul, SP [facility] [address] [id number] [address] [place] [address], [place] [address] SP Jul, SP [facility] [address] [id number] [address] [place] [address], [place] [address] SP Jul, SP [facility] [address] [id number] [address] [place] [address], [place] [address] SP Jul, SP [facility] [address] [id number] [address] [place] [address], [place] [address] SP Jul, SP [facility] [address] [id number] [address] [place] [address], [place] [address] SP Jul, SP [facility] [address] [id number] [address] [place] [address], [place] [address] SP Jul, SP [facility] [address] [id number] [address] [place] [address], [place] [address] SP Jun, SP [facility] [address] [id number] [address] [place] [address], [place] [address] SP Jun, SP [facility] [address] [id number] [address] [place] [address], [place] [address] SP Jun, SP [facility] [address] [id number] [address] [place] [address], [place] [address] SP Jun, 2014 SP [facility] [address] [id number] [address] [place] [address], [place] [address] SP Jun, 2014 SP [facility] [address] [id number] [address] [place] [address], [place] [address] SP Jun, 2014 SP [facility] [address] [id number] [address] [place] [address], [place] [address] SP Jun, 2014 SP [facility] [address] [id number] [address] [place] [address], [place] [address] SP Jun, 2014 SP [facility] [address] [id number] [address] [place] [address], [place] [address] SP Jun, 2014 SP [facility] [address] [id number] [address] [place] [address], [place] [address] SP Jun, 2014 SP [facility] [address] [id number] [address] [place] [address], [place] [address] SP May, SP [facility] [address] [id number] [address] [place] [address], [place] [address] SP May, SP [facility] [address] [id number] [address] [place] [address] SP May, SP [facility] [address] [id number] [address] [place] [phone] SP May, SP [facility] [address] [id number] [address] [place] [address] SP Jan, SP [facility] [address] [id number] [address] [place] [address], [place] [address] SP Jan, SP [facility] [address] [id number] [address] [place] [address] SP Aug, SP [facility] [address] [id number] [address] [place] [address], [place] [address] SP Aug, SP [facility] [address] [id number] [address] [place] [address], [place] [address] SP Aug, SP [facility] [address] [id number] [address] [place] [address], [place] [address] SP Aug, SP [facility] [address] [id number] [address] [place] [address], [place] [address] SP May, SP [facility] [address] [id number] [address] [place] [address], [place] [address] SP May, SP [facility] [address] [id number] [address] [place] [address], [place] [address] SP Feb, SP [facility] [address] [id number] [address] [place] [address], [place] [address] SP Feb, SP [facility] [address] [id number] [address] [place] [address], [place] [address] SP Feb, SP [facility] [address] [id number] [address] [place] [address], [place] [address] SP Feb, SP [facility] [address] [id number] [address] [place] [address], [place] [address] SP Feb, SP [facility] [address] [id number] [address] [place] [address], [place] [address] SP Dec, SP [facility] [address] [id number] [address] [place] [address], [place] [address] SP Oct, SP [facility] [address] [id number] [address] [place] [address], [place] [address] SP September, SP [facility] [address] [id number] [address] [place] [address], [place] [address] SP Aug, SP [facility] [address] [id number] [address] [place] [address], [place] [address] SP Nov, SP [facility] [address] [id number] [address] [place] [address], [place] [address] SP Nov, SP [facility] [address] [facility] [id number] [address] [place] [address] SP Nov, SP IMMUNIZATIONS No Known Immunizations SOCIAL HISTORY Never Assessed REASON FOR VISIT PLAN OF CARE VITAL SIGNS MEDICATIONS No Known Medications RESULTS No Results PROCEDURES Procedure Date Ordered Result Body Site POS PSYCH DIAGNOSTIC EVALUATION August 09, 2014 SP INSTRUCTIONS MEDICATIONS ADMINISTERED No Known Medications MEDICAL (GENERAL) HISTORY Type Description Date POS Medical History anxiety SP Hospitalization History healthy 2015 SP
--- OUTSIDE RECORDS SUMMARY | 2019-03-22 21:57 | XMS REPORT ---
Author Author PRAKASH MARTINEZ POS Organization [facility] SP Address [address] [place] [address] SP Care Team Providers Care Leaf Tinner Name Role Phone POS PRAKASH MARTINEZ Unavailable SP PROBLEMS Type Condition ICD9-CM Code [id number] Code Onset Dates Condition S tatus SNOMED POS Problem Anxiety F41.9 Active 85919174 POS Problem Other obesity due to excess calories E66.09 Active 108678161 SP Problem Body mass index (BMI) of 32.0-32.9 in adult Z68.32 Active 645244823 SP ALLERGIES No Information ENCOUNTERS Encounter Location Date Diagnosis POS [facility] [address] [facility] [id number] [address] [place] [address] SP Nov, Acute bilateral back pain, u nspecified back location M54.9 SP [facility] [address] [facility] [id number] [address] [place] [address] SP Oct, Heart palpitations R00.2 SP [facility] [address] [facility] [id number] [address] [place] [address] SP Aug, Anxiety F41.9 ; Heart palpit ations R00.2 ; Marijuana use in SP F12.90 ; Other obesity due to excess calories E66.09 and Body mass index (BMI) of 32.0-32.9 in adult Z68.32 [facility] [address] [facility] [id number] [address] [place] [address] SP Jun, Heart palpitations R00.2 SP [facility] [address] [id number] [address] [place] [address] [id number] SP Feb, Encounter for dental examina tion and cleaning without abnormal SP Z01.20 [facility] [address] [id number] [address] [place] [address] [id number] SP Nov, Dental examination Z01.20 SP [facility] [address] [id number] [address] [id number] SP Nov, Dental examination Z01.20 SP [facility] [address] [id number] [address] [place] [id number] SP Mar, Encounter for dental examina tion Z01.20 SP [facility] [address] [id number] [address] [place] [address] SP Jan, SP [facility] [address] [id number] [address] [place] [address] SP Oct, Social anxiety disorder 300. 23 and Attention deficit disorder SP [facility] [address] [facility] [id number] [address] [place] [address] SP September, SP [facility] [address] [facility] [id number] [address] [place] [address] SP September, Social anxiety disorder 300. 23 and Attention deficit disorder SP [facility] [address] [facility] [id number] [address] [place] [address] SP September, School physical exam V70.5 a nd Screening for tuberculosis V74.1 SP [facility] [address] [facility] [id number] [address] [place] [address] SP September, Major depression, recurrent 296.30 ; Anxiety 300.00 and No SP on [place] II V71.09 [facility] [address] [facility] [id number] [address] [place] [address] SP Aug, SP [facility] [address] [facility] [id number] [address] [place] [address] SP Aug, SP [facility] [address] [facility] [id number] [address] [place] [address] SP Jul, SP [facility] [address] [facility] [id number] [address] [place] [address] SP Jul, SP [facility] [address] [id number] [address] [place] [address], [place] [address] SP Jul, SP [facility] [address] [id number] [address] [place] [address], [place] [address] SP Jul, SP [facility] [address] [id number] [address] [place] [address], [place] [address] SP Jul, SP [facility] [address] [id number] [address] [place] [address], [place] [address] SP Jul, SP [facility] [address] [id number] [address] [place] [address], [place] [address] SP Jul, SP [facility] [address] [id number] [address] [place] [address], [place] [address] SP Jul, SP [facility] [address] [id number] [address] [place] [address], [place] [address] SP Jul, SP [facility] [address] [id number] [address] [place] [address], [place] [address] SP Jul, SP [facility] [address] [id number] [address] [place] [address], [place] [address] SP Jul, SP [facility] [address] [id number] [address] [place] [address], [place] [address] SP Jul, SP [facility] [address] [id number] [address] [place] [address], [place] [address] SP Jul, SP [facility] [address] [id number] [address] [place] [address], [place] [address] SP Jun, SP [facility] [address] [id number] [address] [place] [address], [place] [address] SP Jun, SP [facility] [address] [id number] [address] [place] [address], [place] [address] SP Jun, 2014 SP [facility] [address] [id number] [address] [place] [address], [place] [address] SP Jun, 2014 SP [facility] [address] [id number] [address] [place] [address], [place] [address] SP Jun, SP [facility] [address] [id number] [address] [place] [address], [place] [address] SP Jun, SP [facility] [address] [id number] [address] [place] [address], [place] [address] SP Jun, SP [facility] [address] [id number] [address] [place] [address], [place] [address] SP Jun, 2014 SP [facility] [address] [id number] [address] [place] [address], [place] [address] SP Jun, SP [facility] [address] [id number] [address] [place] [address], [place] [address] SP Jun, SP [facility] [address] [id number] [address] [place] [address], [place] [address] SP May, SP [facility] [address] [id number] [address] [place] [address], [place] [address] SP May, SP [facility] [address] [id number] [address] [place] [address], [place] [address] SP May, SP [facility] [address] [id number] [address] [place] [address], [place] [address] SP May, SP [facility] [address] [id number] [address] [place] [address] SP Jan, SP [facility] [address] [id number] [address] [place] [address], [place] [address] SP Jan, SP [facility] [address] [id number] [address] [place] [address], [place] [address] SP Aug, SP [facility] [address] [id number] [address] [place] [address], [place] [address] SP Aug, SP [facility] [address] [id number] [address] [place] [address] SP Aug, SP [facility] [address] [id number] [address] [place] [address], [place] [address] SP Aug, SP [facility] [address] [id number] [address] [place] [address], [place] [address] SP May, SP [facility] [address] [id number] [address] [place] [address], [place] [address] SP May, SP [facility] [address] [id number] [address] [place] [address], [place] [address] SP Feb, SP [facility] [address] [id number] [address] [place] [address], [place] [address] SP Feb, SP [facility] [address] [id number] [address] [place] [address], [place] [address] SP Feb, SP [facility] [address] [id number] [address] [place] [address], [place] [address] SP Feb, SP [facility] [address] [id number] [address] [place] [address], [place] [address] SP Feb, SP [facility] [address] [id number] [address] [place] [address], [place] [address] SP Dec, SP [facility] [address] [id number] [address] [place] [address], [place] [address] SP Oct, SP [facility] [address] [id number] [address] [place] [address], [place] [address] SP September, SP [facility] [address] [id number] [address] [place] [address], [place] [address] SP Aug, SP [facility] [address] [id number] [address] [place] [address], [place] [address] SP Nov, SP [facility] [address] [id number] [address] [place] [address], [place] [address] SP Nov, SP [facility] [address] [facility] [id number] [address] [place] [address] SP Nov, SP IMMUNIZATIONS No Known Immunizations SOCIAL HISTORY Never Assessed REASON FOR VISIT PLAN OF CARE VITAL SIGNS Height 64 in 2014-02-04 POS Weight 155.9 lbs 2014-02-04 POS Temperature 99.1 degrees Fahrenheit 2014-02-04 POS Heart Rate 74 bpm 2014-02-04 POS Respiratory Rate 16 2014-02-04 POS Blood pressure systolic 118 mmHg 2014-02-04 POS Blood pressure diastolic 70 mmHg 2014-02-04 POS MEDICATIONS No Known Medications RESULTS No Results PROCEDURES Procedure Date Ordered Result Body Site POS THER/PROPH/DIAG INJ, SC/IM Feb 04, 2014 SP INJ TRIAMCINOLONE ACETONIDE 10 MG Feb 04, 2014 SP INSTRUCTIONS MEDICATIONS ADMINISTERED No Known Medications MEDICAL (GENERAL) HISTORY Type Description Date POS Medical History anxiety SP Hospitalization History healthy 2015 SP
--- OUTSIDE RECORDS SUMMARY | 2019-03-22 21:57 | XMS REPORT ---
Author Author MARILUZ MARC POS Organization [facility] SP Address [address] [place] [address] SP Care Team Providers Care Aerial Hurricane Hunter Name Role Phone POS MARILUZ MARC Unavailable SP PROBLEMS Type Condition ICD9-CM Code [id number] Code Onset Dates Condition S tatus SNOMED POS Problem Anxiety F41.9 Active 96000283 POS Problem Other obesity due to excess calories E66.09 Active 760990424 SP Problem Body mass index (BMI) of 32.0-32.9 in adult Z68.32 Active 091161450 SP ALLERGIES No Information ENCOUNTERS Encounter Location Date Diagnosis POS [facility] [address] [facility] [id number] [address] [place] [address] SP Nov, Acute bilateral back pain, u nspecified back location M54.9 SP [facility] [address] [facility] [id number] [place] [address] SP Oct, Heart palpitations R00.2 SP [facility] [address] [facility] [id number] [place] [address] SP Aug, Anxiety F41.9 ; Heart palpit ations R00.2 ; Marijuana use in SP F12.90 ; Other obesity due to excess calories E66.09 and Body mass index (BMI) of 32.0-32.9 in adult Z68.32 [facility] [address] [facility] [id number] [address] [place] [address] SP Jun, Heart palpitations R00.2 SP [facility] [address] [facility] [id number] [address] [place] [id number] SP Feb, Encounter for dental examina tion and cleaning without abnormal SP Z01.20 [facility] [address] [id number] [address] [place] [id number] SP Nov, Dental examination Z01.20 SP [facility] [address] [id number] [place] [id number] SP Nov, Dental examination Z01.20 SP [facility] [address] [id number] [address] [place] [id number] SP Mar, Encounter for dental examina tion Z01.20 SP [facility] [address] [facility] [id number] [address] [place] [phone] SP Jan, SP [facility] [address] [facility] [id number] [address] [place] [phone] SP Oct, Social anxiety disorder 300. 23 and Attention deficit disorder SP [facility] [address] [facility] [id number] [address] [place] [address] SP September, SP [facility] [address] [facility] [id number] [address] [place] [phone] SP September, Social anxiety disorder 300. 23 and Attention deficit disorder SP [facility] [address] [facility] [id number] [address] [place] [phone] SP September, School physical exam V70.5 a nd Screening for tuberculosis V74.1 SP [facility] [address] [facility] [id number] [address] [place] [id number] SP September, Major depression, recurrent 296.30 ; Anxiety 300.00 and No SP on [place] V71.09 [facility] [address] [facility] [id number] [address] [place] [phone] SP Aug, SP [facility] [address] [facility] [id number] [address] [place] [phone] SP Aug, SP [facility] [address] [facility] [id number] [address] [place] [phone] SP Jul, SP [facility] [address] [facility] [id number] [address] [place] [phone] SP Jul, SP [facility] [address] [id number] [address] [address] SP Jul, SP [facility] [address] [id number] [address] [place] [address], [place] [address] SP Jul, SP [facility] [address] [id number] [address] [place] [address], [place] [address] SP Jul, SP [facility] [address] [id number] [address] [place] [address], [place] [address] SP Jul, SP [facility] [address] [id number] [address] [place] [address], [place] [address] SP Jul, SP [facility] [address] [id number] [address] [place] [address], [place] [address] SP Jul, SP [facility] [address] [id number] [address] [place] [address], [place] [address] SP Jul, 2014 SP [facility] [address] [id number] [address] [place] [address], [place] [address] SP Jul, SP [facility] [address] [id number] [address] [place] [address], [place] [address] SP Jul, SP [facility] [address] [id number] [address] [place] [address], [place] [address] SP Jul, SP [facility] [address] [id number] [address] [place] [address], [place] [address] SP Jul, SP [facility] [address] [id number] [address] [place] [address], [place] [address] SP Jun, SP [facility] [address] [id number] [address] [place] [address], [place] [address] SP Jun, 2014 SP [facility] [address] [id number] [address] [place] [address], [place] [address] SP Jun, SP [facility] [address] [id number] [address] [place] [address], [place] [address] SP Jun, 2014 SP [facility] [address] [id number] [address] [place] [address], [place] [address] SP Jun, 2014 SP [facility] [address] [id number] [address] [place] [address], [place] [address] SP Jun, 2014 SP [facility] [address] [id number] [address] [place] [address], [place] [address] SP Jun, 2014 SP [facility] [address] [id number] [address] [place] [address], [place] [address] SP Jun, 2014 SP [facility] [address] [id number] [address] [place] [address], [place] [address] SP Jun, 2014 SP [facility] [address] [id number] [address] [place] [address], [place] [address] SP Jun, 2014 SP [facility] [address] [id number] [address] [place] [address], [place] [address] SP May, SP [facility] [address] [id number] [address] [place] [address], [place] [address] SP May, SP [facility] [address] [id number] [address] [place] [address], [place] [address] SP May, SP [facility] [address] [id number] [address] [place] [address], [place] [address] SP May, SP [facility] [address] [id number] [address] [place] [address], [place] [address] SP Jan, SP [facility] [address] [id number] [address] [place] [address], [place] [address] SP Jan, SP [facility] [address] [id number] [address] [place] [address], [place] [address] SP Aug, SP [facility] [address] [id number] [address] [place] [address], [place] [address] SP Aug, SP [facility] [address] [id number] [address] [place] [address], [place] [address] SP Aug, SP [facility] [address] [id number] [address] [place] [address], [place] [address] SP Aug, SP [facility] [address] [id number] [address] [place] [address], [place] [address] SP May, SP [facility] [address] [id number] [address] [place] [address], [place] [address] SP May, SP [facility] [address] [id number] [address] [place] [address], [place] [address] SP Feb, SP [facility] [address] [id number] [address] [place] [address], [place] [address] SP Feb, SP [facility] [address] [id number] [address] [place] [address], [place] [address] SP Feb, SP [facility] [address] [id number] [address] [place] [address], [place] [address] SP Feb, SP [facility] [address] [id number] [address] [place] [address], [place] [address] SP Feb, SP [facility] [address] [id number] [address] [place] [address], [place] [address] SP Dec, SP [facility] [address] [id number] [address] [place] [address], [place] [address] SP Oct, SP [facility] [address] [id number] [address] [place] [address], [place] [address] SP September, SP [facility] [address] [id number] [address] [place] [address], [place] [address] SP Aug, SP [facility] [address] [id number] [address] [place] [address], [place] [address] SP Nov, SP [facility] [address] [id number] [address] [place] [address], [place] [address] SP Nov, SP [facility] [address] [facility] [id number] [address] [place] [address] SP Nov, SP IMMUNIZATIONS No Known Immunizations SOCIAL HISTORY Never Assessed REASON FOR VISIT PLAN OF CARE VITAL SIGNS MEDICATIONS No Known Medications RESULTS No Results PROCEDURES No Known procedures INSTRUCTIONS MEDICATIONS ADMINISTERED No Known Medications MEDICAL (GENERAL) HISTORY Type Description Date POS Medical History anxiety SP Hospitalization History healthy 2015 SP
--- OUTSIDE RECORDS SUMMARY | 2019-03-22 21:57 | XMS REPORT ---
Author Author MARILUZ MARC POS Organization [facility] SP Address [address] [place] [address] SP Care Team Providers Care [employer] Specialist Name Role Phone POS MARILUZ MARC Unavailable SP PROBLEMS Type Condition ICD9-CM Code JYY72-TR Code Onset Dates Condition S tatus SNOMED POS Problem Anxiety F41.9 Active 33245385 POS Problem Other obesity due to excess calories E66.09 Active 616014109 SP Problem Body mass index (BMI) of 32.0-32.9 in adult Z68.32 Active 909338407 SP ALLERGIES No Information ENCOUNTERS Encounter Location Date Diagnosis POS [facility] [address] [facility] [id number] [address] [place] [address] SP Nov, Acute bilateral back pain, u nspecified back location M54.9 SP [facility] [address] [facility] [id number] [place] [address] SP Oct, Heart palpitations R00.2 SP [facility] [address] [facility] [id number] [address] [place] [id number] SP Aug, Anxiety F41.9 ; Heart palpit ations R00.2 ; Marijuana use in SP F12.90 ; Other obesity due to excess calories E66.09 and Body mass index (BMI) of 32.0-32.9 in adult Z68.32 [facility] [address] [facility] [id number] [address] [place] [address] SP Jun, Heart palpitations R00.2 SP [facility] [address] [facility] [id number] [address] [place] [id number] SP Feb, Encounter for dental examina tion and cleaning without abnormal SP Z01.20 [facility] [address] [id number] [address] [place] [id number] SP Nov, Dental examination Z01.20 SP [facility] [address] [id number] [address] [id number] SP Nov, Dental examination Z01.20 SP [facility] [address] [id number] [address] [place] [id number] SP Mar, Encounter for dental examina tion Z01.20 SP [facility] [address] [facility] [id number] [address] [place] [id number] SP Jan, SP [facility] [address] [facility] [id number] [address] [place] [id number] SP Oct, Social anxiety disorder 300. 23 and Attention deficit disorder SP [facility] [address] [facility] [id number] [address] [place] [phone] SP September, SP [facility] [address] [facility] [id number] [address] [place] [phone] SP September, Social anxiety disorder 300. 23 and Attention deficit disorder SP [facility] [address] [facility] [id number] [address] [place] [phone] SP September, School physical exam V70.5 a nd Screening for tuberculosis V74.1 SP [facility] [address] [facility] [id number] [address] [place] [phone] SP September, Major depression, recurrent 296.30 ; Anxiety 300.00 and No SP on [place] V71.09 [facility] [address] [facility] [id number] [address] [place] [phone] SP Aug, SP [facility] [address] [facility] [id number] [address] [place] [phone] SP Aug, SP [facility] [address] [facility] [id number] [address] [place] [phone] SP Jul, SP [facility] [address] [facility] [id number] [address] [place] [phone] SP Jul, SP [facility] [address] [id number] [facility] [place] [address] SP Jul, SP [facility] [address] [id number] [address] [place] [address], [place] [address] SP Jul, SP [facility] [address] [id number] [address] [place] [address], [place] [address] SP Jul, SP [facility] [address] [id number] [address] [place] [address], [place] [address] SP Jul, SP [facility] [address] [id number] [address] [place] [address], [place] [address] SP Jul, SP [facility] [address] [id number] [address] [place] [address], [place] [address] SP Jul, SP [facility] [address] [id number] [address] [place] [address], [place] [address] SP Jul, 2014 SP [facility] [address] [id number] [address] [place] [address], [place] [address] SP Jul, SP [facility] [address] [id number] [address] [place] [address], [place] [address] SP Jul, SP [facility] [address] [id number] [address] [place] [address], [place] [address] SP Jul, SP [facility] [address] [id number] [address] [place] [address], [place] [address] SP Jul, SP [facility] [address] [id number] [address] [place] [address], [place] [address] SP Jun, SP [facility] [address] [id number] [address] [place] [address], [place] [address] SP Jun, 2014 SP [facility] [address] [id number] [address] [place] [address], [place] [address] SP Jun, SP [facility] [address] [id number] [address] [place] [address], [place] [address] SP Jun, 2014 SP [facility] [address] [id number] [address] [place] [address], [place] [address] SP Jun, 2014 SP [facility] [address] [id number] [address] [place] [address], [place] [address] SP Jun, 2014 SP [facility] [address] [id number] [address] [place] [address], [place] [address] SP Jun, 2014 SP [facility] [address] [id number] [address] [place] [address], [place] [address] SP Jun, 2014 SP [facility] [address] [id number] [address] [place] [address], [place] [address] SP Jun, 2014 SP [facility] [address] [id number] [address] [place] [address], [place] [address] SP Jun, 2014 SP [facility] [address] [id number] [address] [place] [address], [place] [address] SP May, SP [facility] [address] [id number] [address] [place] [address], [place] [address] SP May, SP [facility] [address] [id number] [address] [place] [address], [place] [address] SP May, SP [facility] [address] [id number] [address] [place] [address], [place] [address] SP May, SP [facility] [address] [id number] [address] [place] [address], [place] [address] SP Jan, SP [facility] [address] [id number] [address] [place] [address], [place] [address] SP Jan, SP [facility] [address] [id number] [address] [place] [address], [place] [address] SP Aug, SP [facility] [address] [id number] [address] [place] [address], [place] [address] SP Aug, SP [facility] [address] [id number] [address] [place] [address], [place] [address] SP Aug, SP [facility] [address] [id number] [address] [place] [address], [place] [address] SP Aug, SP [facility] [address] [id number] [address] [place] [address], [place] [address] SP May, SP [facility] [address] [id number] [address] [place] [address], [place] [address] SP May, SP [facility] [address] [id number] [address] [place] [address], [place] [address] SP Feb, SP [facility] [address] [id number] [address] [place] [address], [place] [address] SP Feb, SP [facility] [address] [id number] [address] [place] [address], [place] [address] SP Feb, SP [facility] [address] [id number] [address] [place] [address], [place] [address] SP Feb, SP [facility] [address] [id number] [address] [place] [address], [place] [address] SP Feb, SP [facility] [address] [id number] [address] [place] [address], [place] [address] SP Dec, SP [facility] [address] [id number] [address] [place] [address], [place] [address] SP Oct, SP [facility] [address] [id number] [address] [place] [address], [place] [address] SP September, SP [facility] [address] [id number] [address] [place] [address], [place] [address] SP Aug, SP [facility] [address] [id number] [address] [place] [address], [place] [address] SP Nov, SP [facility] [address] [id number] [address] [place] [address], [place] [address] SP Nov, SP [facility] [address] [facility] [id number] [address] [place] [address] SP Nov, SP IMMUNIZATIONS No Known Immunizations SOCIAL HISTORY Never Assessed REASON FOR VISIT PLAN OF CARE VITAL SIGNS Height 64 in 2014-07-08 POS Weight 157.2 lbs 2014-07-08 POS Temperature 98 degrees Fahrenheit 2014-07-08 POS Blood pressure systolic 118 mmHg 2014-07-08 POS Blood pressure diastolic 78 mmHg 2014-07-08 POS MEDICATIONS No Known Medications RESULTS No Results PROCEDURES Procedure Date Ordered Result Body Site POS TRICHOMONAS VAGIN, DIR PROBE Jul 08, 2014 SP SCR PAP SMER;NEW PT OBTAIN PREP&CONVY-LAB Jul 08, 2014 SP CYTOPATH C/V AUTO FLUID REDO Jul 08, 2014 SP CHYLMD TRACH, DNA, AMP PROBE Jul 08, 2014 SP URINE TEST Jul 08, 2014 SP CULTURE, BACTERIA, OTHER Jul 08, 2014 SP INSTRUCTIONS MEDICATIONS ADMINISTERED No Known Medications MEDICAL (GENERAL) HISTORY Type Description Date POS Medical History anxiety SP Hospitalization History healthy 2015 SP
--- OUTSIDE RECORDS SUMMARY | 2019-03-22 21:57 | XMS REPORT ---
Author Author MARILUZ MARC POS Organization [facility] SP Address [address] [place] [address] SP Care Team Providers Care Relay Motorman Name Role Phone POS MARILUZ MARC Unavailable SP PROBLEMS Type Condition ICD9-CM Code [id number] Code Onset Dates Condition S tatus SNOMED POS Problem Anxiety F41.9 Active 71713647 POS Problem Other obesity due to excess calories E66.09 Active 017077349 SP Problem Body mass index (BMI) of 32.0-32.9 in adult Z68.32 Active 108426323 SP ALLERGIES No Information ENCOUNTERS Encounter Location Date Diagnosis POS [facility] [address] [facility] [id number] [address] [place] [address] SP Nov, Acute bilateral back pain, u nspecified back location M54.9 SP [facility] [address] [facility] [id number] [place] [address] SP Oct, Heart palpitations R00.2 SP [facility] [address] [facility] [id number] [place] [address] SP Aug, Anxiety F41.9 ; Heart palpit ations R00.2 ; Marijuana use in SP F12.90 ; Other obesity due to excess calories E66.09 and Body mass index (BMI) of 32.0-32.9 in adult Z68.32 [facility] [address] [facility] [id number] [address] [place] [address] SP Jun, Heart palpitations R00.2 SP [facility] [address] [facility] [id number] [address] [place] [id number] SP Feb, Encounter for dental examina tion and cleaning without abnormal SP Z01.20 [facility] [address] [id number] [address] [place] [id number] SP Nov, Dental examination Z01.20 SP [facility] [address] [id number] [place] [id number] SP Nov, Dental examination Z01.20 SP [facility] [address] [id number] [address] [place] [address] [id number] SP Mar, Encounter for dental examina tion Z01.20 SP [facility] [address] [facility] [id number] [address] [place] [phone] SP Jan, SP [facility] [address] [facility] [id number] [address] [place] [phone] SP Oct, Social anxiety disorder 300. 23 and Attention deficit disorder SP [facility] [address] [facility] [id number] [address] [place] [phone] SP September, SP [facility] [address] [facility] [id number] [address] [place] [phone] SP September, Social anxiety disorder 300. 23 and Attention deficit disorder SP [facility] [address] [facility] [id number] [address] [place] [phone] SP September, School physical exam V70.5 a nd Screening for tuberculosis V74.1 SP [facility] [address] [facility] [id number] [address] [place] [phone] SP September, Major depression, recurrent 296.30 ; Anxiety 300.00 and No SP on [place] V71.09 [facility] [address] [facility] [id number] [address] [place] [phone] SP Aug, SP [facility] [address] [facility] [id number] [address] [place] [phone] SP Aug, SP [facility] [address] [facility] [id number] [address] [place] [phone] SP Jul, SP [facility] [address] [facility] [id number] [address] [place] [phone] SP Jul, SP [facility] [address] [id number] [facility] [place] [address] SP Jul, SP [facility] [address] [id number] [address] [place] [address], [place] [address] SP Jul, SP [facility] [address] [id number] [address] [place] [address], [place] [address] SP Jul, SP [facility] [address] [id number] [address] [place] [address], [place] [address] SP Jul, SP [facility] [address] [id number] [address] [place] [address], [place] [address] SP Jul, SP [facility] [address] [id number] [address] [place] [address], [place] [address] SP Jul, SP [facility] [address] [id number] [address] [place] [address], [place] [address] SP Jul, 2014 SP [facility] [address] [id number] [address] [place] [address], [place] [address] SP Jul, SP [facility] [address] [id number] [address] [place] [address], [place] [address] SP Jul, SP [facility] [address] [id number] [address] [place] [address], [place] [address] SP Jul, SP [facility] [address] [id number] [address] [place] [address], [place] [address] SP Jul, SP [facility] [address] [id number] [address] [place] [address], [place] [address] SP Jun, SP [facility] [address] [id number] [address] [place] [address], [place] [address] SP Jun, 2014 SP [facility] [address] [id number] [address] [place] [address], [place] [address] SP Jun, SP [facility] [address] [id number] [address] [place] [address], [place] [address] SP Jun, 2014 SP [facility] [address] [id number] [address] [place] [address], [place] [address] SP Jun, 2014 SP [facility] [address] [id number] [address] [place] [address], [place] [address] SP Jun, 2014 SP [facility] [address] [id number] [address] [place] [address], [place] [address] SP Jun, 2014 SP [facility] [address] [id number] [address] [place] [address], [place] [address] SP Jun, 2014 SP [facility] [address] [id number] [address] [place] [address], [place] [address] SP Jun, 2014 SP [facility] [address] [id number] [address] [place] [address], [place] [address] SP Jun, 2014 SP [facility] [address] [id number] [address] [place] [address], [place] [address] SP May, SP [facility] [address] [id number] [address] [place] [address], [place] [address] SP May, SP [facility] [address] [id number] [address] [place] [address], [place] [address] SP May, SP [facility] [address] [id number] [address] [place] [address], [place] [address] SP May, SP [facility] [address] [id number] [address] [place] [address], [place] [address] SP Jan, SP [facility] [address] [id number] [address] [place] [address], [place] [address] SP Jan, SP [facility] [address] [id number] [address] [place] [address], [place] [address] SP Aug, SP [facility] [address] [id number] [address] [place] [address], [place] [address] SP Aug, SP [facility] [address] [id number] [address] [place] [address], [place] [address] SP Aug, SP [facility] [address] [id number] [address] [place] [address], [place] [address] SP Aug, SP [facility] [address] [id number] [address] [place] [address], [place] [address] SP May, SP [facility] [address] [id number] [address] [place] [address], [place] [address] SP May, SP [facility] [address] [id number] [address] [place] [address], [place] [address] SP Feb, SP [facility] [address] [id number] [address] [place] [address], [place] [address] SP Feb, SP [facility] [address] [id number] [address] [place] [address], [place] [address] SP Feb, SP [facility] [address] [id number] [address] [place] [address], [place] [address] SP Feb, SP [facility] [address] [id number] [address] [place] [address], [place] [address] SP Feb, SP [facility] [address] [id number] [address] [place] [address], [place] [address] SP Dec, SP [facility] [address] [id number] [address] [place] [address], [place] [address] SP Oct, SP [facility] [address] [id number] [address] [place] [address], [place] [address] SP September, SP [facility] [address] [id number] [address] [place] [address], [place] [address] SP Aug, SP [facility] [address] [id number] [address] [place] [address], [place] [address] SP Nov, SP [facility] [address] [id number] [address] [place] [address], [place] [address] SP Nov, SP [facility] [address] [facility] [id number] [address] [place] [address] SP Nov, SP IMMUNIZATIONS No Known Immunizations SOCIAL HISTORY Never Assessed REASON FOR VISIT PLAN OF CARE VITAL SIGNS MEDICATIONS No Known Medications RESULTS No Results PROCEDURES No Known procedures INSTRUCTIONS MEDICATIONS ADMINISTERED No Known Medications MEDICAL (GENERAL) HISTORY Type Description Date POS Medical History anxiety SP Hospitalization History healthy 2015 SP
--- OUTSIDE RECORDS SUMMARY | 2019-03-22 21:58 | XMS REPORT ---
Author Author MARILUZ MARC POS Organization [facility] SP Address [address] [place] [address] SP Care Team Providers Care Key Attendant Name Role Phone POS MARILUZ MARC Unavailable SP PROBLEMS Type Condition ICD9-CM Code [id number] Code Onset Dates Condition S tatus SNOMED POS Problem Anxiety F41.9 Active 98638957 POS Problem Other obesity due to excess calories E66.09 Active 200421062 SP Problem Body mass index (BMI) of 32.0-32.9 in adult Z68.32 Active 508519187 SP ALLERGIES No Information ENCOUNTERS Encounter Location Date Diagnosis POS [facility] [address] [facility] [id number] [address] [place] [address] SP Nov, Acute bilateral back pain, u nspecified back location M54.9 SP [facility] [address] [facility] [id number] [place] [address] SP Oct, Heart palpitations R00.2 SP [facility] [address] [facility] [id number] [address] [place] [id number] SP Aug, Anxiety F41.9 ; Heart palpit ations R00.2 ; Marijuana use in SP F12.90 ; Other obesity due to excess calories E66.09 and Body mass index (BMI) of 32.0-32.9 in adult Z68.32 [facility] [address] [facility] [id number] [address] [place] [address] SP Jun, Heart palpitations R00.2 SP [facility] [address] [facility] [id number] [address] [place] [id number] SP Feb, Encounter for dental examina tion and cleaning without abnormal SP Z01.20 [facility] [address] [id number] [address] [place] [id number] SP Nov, Dental examination Z01.20 SP [facility] [address] [id number] [place] [id number] SP Nov, Dental examination Z01.20 SP [facility] [address] [id number] [address] [place] [id number] SP Mar, Encounter for dental examina tion Z01.20 SP [facility] [address] [facility] [id number] [address] [place] [phone] SP Jan, SP [facility] [address] [facility] [id number] [address] [place] [phone] SP Oct, Social anxiety disorder 300. 23 and Attention deficit disorder SP [facility] [address] [facility] [id number] [address] [place] [phone] SP September, SP [facility] [address] [facility] [id number] [address] [place] [id number] SP September, Social anxiety disorder 300. 23 and Attention deficit disorder SP [facility] [address] [facility] [id number] [address] [place] [phone] SP September, School physical exam V70.5 a nd Screening for tuberculosis V74.1 SP [facility] [address] [facility] [id number] [address] [place] [id number] SP September, Major depression, recurrent 296.30 ; Anxiety 300.00 and No SP on [place] II V71.09 [facility] [address] [facility] [id number] [address] [place] [phone] SP Aug, SP [facility] [address] [facility] [id number] [address] [place] [phone] SP Aug, SP [facility] [address] [facility] [id number] [address] [place] [phone] SP Jul, SP [facility] [address] [facility] [id number] [address] [place] [phone] SP Jul, SP [facility] [address] [id number] [address] [address] SP Jul, SP [facility] [address] [id number] [address] [place] [address], [place] [address] SP Jul, SP [facility] [address] [id number] [address] [place] [address], [place] [address] SP Jul, SP [facility] [address] [id number] [address] [place] [address], [place] [address] SP Jul, SP [facility] [address] [id number] [address] [place] [address], [place] [address] SP Jul, SP [facility] [address] [id number] [address] [place] [address], [place] [address] SP Jul, SP [facility] [address] [id number] [address] [place] [address], [place] [address] SP Jul, 2014 SP [facility] [address] [id number] [address] [place] [address], [place] [address] SP Jul, SP [facility] [address] [id number] [address] [place] [address], [place] [address] SP Jul, SP [facility] [address] [id number] [address] [place] [address], [place] [address] SP Jul, SP [facility] [address] [id number] [address] [place] [address], [place] [address] SP Jul, SP [facility] [address] [id number] [address] [place] [address], [place] [address] SP Jun, SP [facility] [address] [id number] [address] [place] [address], [place] [address] SP Jun, 2014 SP [facility] [address] [id number] [address] [place] [address], [place] [address] SP Jun, SP [facility] [address] [id number] [address] [place] [address], [place] [address] SP Jun, 2014 SP [facility] [address] [id number] [address] [place] [address], [place] [address] SP Jun, 2014 SP [facility] [address] [id number] [address] [place] [address], [place] [address] SP Jun, 2014 SP [facility] [address] [id number] [address] [place] [address], [place] [address] SP Jun, 2014 SP [facility] [address] [id number] [address] [place] [address], [place] [address] SP Jun, 2014 SP [facility] [address] [id number] [address] [place] [address], [place] [address] SP Jun, 2014 SP [facility] [address] [id number] [address] [place] [address], [place] [address] SP Jun, 2014 SP [facility] [address] [id number] [address] [place] [address], [place] [address] SP May, SP [facility] [address] [id number] [address] [place] [address], [place] [address] SP May, SP [facility] [address] [id number] [address] [place] [address], [place] [address] SP May, SP [facility] [address] [id number] [address] [place] [address], [place] [address] SP May, SP [facility] [address] [id number] [address] [place] [address], [place] [address] SP Jan, SP [facility] [address] [id number] [address] [place] [address], [place] [address] SP Jan, SP [facility] [address] [id number] [address] [place] [address], [place] [address] SP Aug, SP [facility] [address] [id number] [address] [place] [address], [place] [address] SP Aug, SP [facility] [address] [id number] [address] [place] [address], [place] [address] SP Aug, SP [facility] [address] [id number] [address] [place] [address], [place] [address] SP Aug, SP [facility] [address] [id number] [address] [place] [address], [place] [address] SP May, SP [facility] [address] [id number] [address] [place] [address], [place] [address] SP May, SP [facility] [address] [id number] [address] [place] [address], [place] [address] SP Feb, SP [facility] [address] [id number] [address] [place] [address], [place] [address] SP Feb, SP [facility] [address] [id number] [address] [place] [address], [place] [address] SP Feb, SP [facility] [address] [id number] [address] [place] [address], [place] [address] SP Feb, SP [facility] [address] [id number] [address] [place] [address], [place] [address] SP Feb, SP [facility] [address] [id number] [address] [place] [address], [place] [address] SP Dec, SP [facility] [address] [id number] [address] [place] [address], [place] [address] SP Oct, SP [facility] [address] [id number] [address] [place] [address], [place] [address] SP September, SP [facility] [address] [id number] [address] [place] [address], [place] [address] SP Aug, SP [facility] [address] [id number] [address] [place] [address], [place] [address] SP Nov, SP [facility] [address] [id number] [address] [place] [address], [place] [address] SP Nov, SP [facility] [address] [facility] [id number] [address] [place] [address] SP Nov, SP IMMUNIZATIONS No Known Immunizations SOCIAL HISTORY Never Assessed REASON FOR VISIT PLAN OF CARE VITAL SIGNS MEDICATIONS No Known Medications RESULTS No Results PROCEDURES No Known procedures INSTRUCTIONS MEDICATIONS ADMINISTERED No Known Medications MEDICAL (GENERAL) HISTORY Type Description Date POS Medical History anxiety SP Hospitalization History healthy 2015 SP
--- OUTSIDE RECORDS SUMMARY | 2019-03-22 21:58 | XMS REPORT ---
Author Author Migration, Doctor POS Organization [facility] SP Address Unknown SP Phone Unavailable SP Care Team Providers Care Packing Attendant Name Role Phone POS Migration, Doctor Unavailable Unavailable SP PROBLEMS Type Condition ICD9-CM Code [id number] Code Onset Dates Condition S tatus SNOMED POS Problem Anxiety F41.9 Active 00057471 POS Problem Other obesity due to excess calories E66.09 Active 184589962 SP Problem Body mass index (BMI) of 32.0-32.9 in adult Z68.32 Active 751603525 SP ALLERGIES No Information ENCOUNTERS Encounter Location Date Diagnosis POS [facility] [address] [facility] [id number] [place] [address] SP Nov, Acute bilateral back pain, u nspecified back location M54.9 SP [facility] [address] [facility] [id number] [address] [place] [address] SP Oct, Heart palpitations R00.2 SP [facility] [id number] [place] [phone] SP Aug, Anxiety F41.9 ; Heart palpit ations R00.2 ; Marijuana use in SP F12.90 ; Other obesity due to excess calories E66.09 and Body mass index (BMI) of 32.0-32.9 in adult Z68.32 [facility] [address] [facility] [id number] [address] [place] [address] SP Jun, Heart palpitations R00.2 SP [facility] [address] [id number] [address] [place] [address] [id number] SP Feb, Encounter for dental examina tion and cleaning without abnormal SP Z01.20 [facility] [address] [id number] [address] [place] [address] [id number] SP Nov, Dental examination Z01.20 SP [facility] [address] [id number] [address] [place] [address] [id number] SP Nov, Dental examination Z01.20 SP [facility] [address] [id number] [address] [place] [address] [id number] SP Mar, Encounter for dental examina tion Z01.20 SP [facility] [address] [facility] [id number] [address] [place] [phone] SP Jan, SP [facility] [address] [id number] [address] [place] [phone] SP Oct, Social anxiety disorder 300. 23 and Attention deficit disorder SP [facility] [address] [facility] [id number] [address] [place] [phone] SP September, SP [facility] [address] [id number] [address] [place] [phone] SP September, Social anxiety disorder 300. 23 and Attention deficit disorder SP [facility] [address] [id number] [address] [place] [phone] SP September, School physical exam V70.5 a nd Screening for tuberculosis V74.1 SP [facility] [address] [id number] [address] [place] [phone] SP September, Major depression, recurrent 296.30 ; Anxiety 300.00 and No SP on [place] V71.09 [facility] [address] [id number] [address] [place] [phone] SP Aug, SP [facility] [address] [id number] [address] [place] [phone] SP Aug, SP [facility] [address] [facility] [id number] [address] [place] [phone] SP Jul, SP [facility] [address] [id number] [address] [place] [phone] SP Jul, SP [facility] [address] [id number] [address] [place] [phone] SP Jul, SP [facility] [address] [id number] [facility] [address] SP Jul, SP [facility] [address] [id number] [address] [place] [address], [place] [address] SP Jul, SP [facility] [address] [id number] [address] [place] [address], [place] [address] SP Jul, SP [facility] [address] [id number] [address] [place] [address], [place] [address] SP Jul, SP [facility] [address] [id number] [address] [place] [address], [place] [address] SP Jul, SP [facility] [address] [id number] [address] [place] [address], [place] [address] SP Jul, 2014 SP [facility] [address] [id number] [address] [place] [address], [place] [address] SP Jul, SP [facility] [address] [id number] [address] [place] [address], [place] [address] SP Jul, SP [facility] [address] [id number] [address] [place] [address], [place] [address] SP Jul, SP [facility] [address] [id number] [address] [place] [address], [place] [address] SP Jul, SP [facility] [address] [id number] [address] [place] [address], [place] [address] SP Jun, 2014 SP [facility] [address] [id number] [address] [place] [address], [place] [address] SP Jun, 2014 SP [facility] [address] [id number] [address] [place] [address], [place] [address] SP Jun, 2014 SP [facility] [address] [id number] [address] [place] [address], [place] [address] SP Jun, 2014 SP [facility] [address] [id number] [address] [place] [address], [place] [address] SP Jun, 2014 SP [facility] [address] [id number] [address] [place] [address], [place] [address] SP Jun, 2014 SP [facility] [address] [id number] [address] [place] [address], [place] [address] SP Jun, 2014 SP [facility] [address] [id number] [address] [place] [address], [place] [address] SP Jun, 2014 SP [facility] [address] [id number] [address] [place] [address], [place] [address] SP Jun, 2014 SP [facility] [address] [id number] [address] [place] [address], [place] [address] SP Jun, 2014 SP [facility] [address] [id number] [address] [place] [address], [place] [address] SP May, SP [facility] [address] [id number] [address] [place] [address], [place] [address] SP May, SP [facility] [address] [id number] [address] [place] [address], [place] [address] SP May, SP [facility] [address] [id number] [address] [place] [phone] SP May, SP [facility] [address] [id number] [address] [place] [address] SP Jan, SP [facility] [address] [id number] [address] [place] [address] SP Jan, SP [facility] [address] [id number] [address] [place] [address], [place] [address] SP Aug, SP [facility] [address] [id number] [address] [place] [address], [place] [address] SP Aug, SP [facility] [address] [id number] [address] [place] [address], [place] [address] SP Aug, SP [facility] [address] [id number] [address] [place] [address], [place] [address] SP Aug, SP [facility] [address] [id number] [address] [place] [address], [place] [address] SP May, SP [facility] [address] [id number] [address] [place] [address], [place] [address] SP May, SP [facility] [address] [id number] [address] [place] [address], [place] [address] SP Feb, SP [facility] [address] [id number] [address] [place] [address], [place] [address] SP Feb, SP [facility] [address] [id number] [address] [place] [address], [place] [address] SP Feb, SP [facility] [address] [id number] [address] [place] [address], [place] [address] SP Feb, SP [facility] [address] [id number] [address] [place] [address], [place] [address] SP Feb, SP [facility] [address] [id number] [address] [place] [address], [place] [address] SP Dec, SP [facility] [address] [id number] [address] [place] [address], [place] [address] SP Oct, SP [facility] [address] [id number] [address] [place] [address], [place] [address] SP September, SP [facility] [address] [id number] [address] [place] [address], [place] [address] SP Aug, SP [facility] [address] [id number] [address] [place] [address], [place] [address] SP Nov, SP [facility] [address] [id number] [address] [place] [address], [place] [address] SP Nov, SP [facility] [address] [id number] [address] [place] [address], [place] [address] SP Nov, SP IMMUNIZATIONS No Known Immunizations SOCIAL HISTORY Never Assessed REASON FOR VISIT EMR-[facility] [place] PLAN OF CARE VITAL SIGNS MEDICATIONS No Known Medications RESULTS No Results PROCEDURES No Known procedures INSTRUCTIONS MEDICATIONS ADMINISTERED No Known Medications MEDICAL (GENERAL) HISTORY Type Description Date POS Medical History anxiety SP Hospitalization History healthy 2015 SP
--- OUTSIDE RECORDS SUMMARY | 2019-03-22 21:58 | XMS REPORT ---
Author Author Migration, Doctor POS Organization [facility] SP Address Unknown SP Phone Unavailable SP Care Team Providers Care Steward/Stewardess Dining Room Name Role Phone POS Migration, Doctor Unavailable Unavailable SP PROBLEMS Type Condition ICD9-CM Code HOW78-SX Code Onset Dates Condition S tatus SNOMED POS Problem Anxiety F41.9 Active 60339422 POS Problem Other obesity due to excess calories E66.09 Active 881461195 SP Problem Body mass index (BMI) of 32.0-32.9 in adult Z68.32 Active 029380954 SP ALLERGIES No Information ENCOUNTERS Encounter Location Date Diagnosis POS [facility] [address] [facility] [id number] [place] [address] SP Nov, Acute bilateral back pain, u nspecified back location M54.9 SP [facility] [address] [facility] [id number] [address] [place] [address] SP Oct, Heart palpitations R00.2 SP [facility] [id number] [place] [address] SP Aug, Anxiety F41.9 ; Heart palpit ations R00.2 ; Marijuana use in SP F12.90 ; Other obesity due to excess calories E66.09 and Body mass index (BMI) of 32.0-32.9 in adult Z68.32 [facility] [address] [facility] [id number] [address] [place] [address] SP Jun, Heart palpitations R00.2 SP [facility] [address] [id number] [address] [place] [address] [id number] SP Feb, Encounter for dental examina tion and cleaning without abnormal SP Z01.20 [facility] [address] [id number] [address] [place] [address] [id number] SP Nov, Dental examination Z01.20 SP [facility] [address] [id number] [address] [place] [address] [id number] SP Nov, Dental examination Z01.20 SP [facility] [address] [id number] [address] [place] [address] [id number] SP Mar, Encounter for dental examina tion Z01.20 SP [facility] [address] [facility] [id number] [address] [place] [phone] SP Jan, SP [facility] [address] [id number] [address] [place] [address] SP Oct, Social anxiety disorder 300. 23 and Attention deficit disorder SP [facility] [address] [facility] [id number] [address] [place] [address] SP September, SP [facility] [address] [id number] [address] [place] [phone] SP September, Social anxiety disorder 300. 23 and Attention deficit disorder SP [facility] [address] [id number] [address] [place] [address] SP September, School physical exam V70.5 a nd Screening for tuberculosis V74.1 SP [facility] [address] [id number] [address] [place] [phone] SP September, Major depression, recurrent 296.30 ; Anxiety 300.00 and No SP on [place] II V71.09 [facility] [address] [id number] [address] [place] [phone] SP Aug, SP [facility] [address] [id number] [address] [place] [phone] SP Aug, SP [facility] [address] [facility] [id number] [address] [place] [phone] SP Jul, SP [facility] [address] [id number] [address] [place] [phone] SP Jul, SP [facility] [address] [id number] [address] [place] [phone] SP Jul, SP [facility] [address] [id number] [facility] [address] SP Jul, SP [facility] [address] [id number] [address] [place] [address], [place] [address] SP Jul, SP [facility] [address] [id number] [address] [place] [address], [place] [address] SP Jul, SP [facility] [address] [id number] [address] [place] [address], [place] [address] SP Jul, SP [facility] [address] [id number] [address] [place] [address], [place] [address] SP Jul, SP [facility] [address] [id number] [address] [place] [address], [place] [address] SP Jul, 2014 SP [facility] [address] [id number] [address] [place] [address], [place] [address] SP Jul, SP [facility] [address] [id number] [address] [place] [address], [place] [address] SP Jul, SP [facility] [address] [id number] [address] [place] [address], [place] [address] SP Jul, SP [facility] [address] [id number] [address] [place] [address], [place] [address] SP Jul, SP [facility] [address] [id number] [address] [place] [address], [place] [address] SP Jun, 2014 SP [facility] [address] [id number] [address] [place] [address], [place] [address] SP Jun, 2014 SP [facility] [address] [id number] [address] [place] [address], [place] [address] SP Jun, 2014 SP [facility] [address] [id number] [address] [place] [address], [place] [address] SP Jun, 2014 SP [facility] [address] [id number] [address] [place] [address], [place] [address] SP Jun, 2014 SP [facility] [address] [id number] [address] [place] [address], [place] [address] SP Jun, 2014 SP [facility] [address] [id number] [address] [place] [address], [place] [address] SP Jun, 2014 SP [facility] [address] [id number] [address] [place] [address], [place] [address] SP Jun, 2014 SP [facility] [address] [id number] [address] [place] [address], [place] [address] SP Jun, 2014 SP [facility] [address] [id number] [address] [place] [address], [place] [address] SP Jun, 2014 SP [facility] [address] [id number] [address] [place] [address], [place] [address] SP May, SP [facility] [address] [id number] [address] [place] [address], [place] [address] SP May, SP [facility] [address] [id number] [address] [place] [address], [place] [address] SP May, SP [facility] [address] [id number] [address] [place] [address] SP May, SP [facility] [address] [id number] [address] [place] [phone] SP Jan, SP [facility] [address] [id number] [address] [place] [phone] SP Jan, SP [facility] [address] [id number] [address] [place] [address], [place] [address] SP Aug, SP [facility] [address] [id number] [address] [place] [address], [place] [address] SP Aug, SP [facility] [address] [id number] [address] [place] [address], [place] [address] SP Aug, SP [facility] [address] [id number] [address] [place] [address], [place] [address] SP Aug, SP [facility] [address] [id number] [address] [place] [address], [place] [address] SP May, SP [facility] [address] [id number] [address] [place] [address], [place] [address] SP May, SP [facility] [address] [id number] [address] [place] [address], [place] [address] SP Feb, SP [facility] [address] [id number] [address] [place] [address], [place] [address] SP Feb, SP [facility] [address] [id number] [address] [place] [address], [place] [address] SP Feb, SP [facility] [address] [id number] [address] [place] [address], [place] [address] SP Feb, SP [facility] [address] [id number] [address] [place] [address], [place] [address] SP Feb, SP [facility] [address] [id number] [address] [place] [address], [place] [address] SP Dec, SP [facility] [address] [id number] [address] [place] [address], [place] [address] SP Oct, SP [facility] [address] [id number] [address] [place] [address], [place] [address] SP September, SP [facility] [address] [id number] [address] [place] [address], [place] [address] SP Aug, SP [facility] [address] [id number] [address] [place] [address], [place] [address] SP Nov, SP [facility] [address] [id number] [address] [place] [address], [place] [address] SP Nov, SP [facility] [address] [id number] [address] [place] [address], [place] [address] SP Nov, SP IMMUNIZATIONS No Known Immunizations SOCIAL HISTORY Never Assessed REASON FOR VISIT EMR-[facility] PLAN OF CARE VITAL SIGNS MEDICATIONS Medication Instructions Dosage Frequency Start Date End Date Duration S tatus POS Amoxicillin 500 mg 1 capsule by Oral route 3 times per day for 10 days 2012 Active SP [place]-3 Fatty Acids 1,000 mg 1 Capsule by Oral route 1 time per day May, Active SP Klonopin 1 mg 1 Tablet 0.5-1 tab by Oral route oral 2 times per day PRN FOR SP Jul, Active SP RESULTS No Results PROCEDURES No Known procedures INSTRUCTIONS MEDICATIONS ADMINISTERED No Known Medications MEDICAL (GENERAL) HISTORY Type Description Date POS Medical History anxiety SP Hospitalization History healthy 2015 SP
--- OUTSIDE RECORDS SUMMARY | 2019-03-22 21:58 | XMS REPORT ---
Author Author MARILUZ MARC POS Organization [facility] SP Address [address] [place] [address] SP Care Team Providers Care Spa Assistant Manager Name Role Phone POS MARILUZ MARC Unavailable SP PROBLEMS Type Condition ICD9-CM Code ZXX89-IN Code Onset Dates Condition S tatus SNOMED POS Problem Anxiety F41.9 Active 79905454 POS Problem Other obesity due to excess calories E66.09 Active 181507497 SP Problem Body mass index (BMI) of 32.0-32.9 in adult Z68.32 Active 790016825 SP ALLERGIES No Information ENCOUNTERS Encounter Location Date Diagnosis POS [facility] [address] [facility] [id number] [address] [place] [address] SP Nov, Acute bilateral back pain, u nspecified back location M54.9 SP [facility] [address] [facility] [id number] [place] [address] SP Oct, Heart palpitations R00.2 SP [facility] [address] [facility] [id number] [address] [place] [phone] SP Aug, Anxiety F41.9 ; Heart palpit ations R00.2 ; Marijuana use in SP F12.90 ; Other obesity due to excess calories E66.09 and Body mass index (BMI) of 32.0-32.9 in adult Z68.32 [facility] [address] [facility] [id number] [address] [place] [address] SP Jun, Heart palpitations R00.2 SP [facility] [address] [facility] [id number] [address] [place] [address] [phone] SP Feb, Encounter for dental examina tion and cleaning without abnormal SP Z01.20 [facility] [address] [id number] [address] [place] [address] [id number] SP Nov, Dental examination Z01.20 SP [facility] [address] [id number] [place] [id number] SP Nov, Dental examination Z01.20 SP [facility] [address] [id number] [address] [place] [address] [id number] SP Mar, Encounter for dental examina tion Z01.20 SP [facility] [address] [facility] [id number] [address] [place] [phone] SP Jan, SP [facility] [address] [facility] [id number] [address] [place] [phone] SP Oct, Social anxiety disorder 300. 23 and Attention deficit disorder SP [facility] [address] [facility] [id number] [address] [place] [phone] SP September, SP [facility] [address] [facility] [id number] [address] [place] [phone] SP September, Social anxiety disorder 300. 23 and Attention deficit disorder SP [facility] [address] [facility] [id number] [address] [place] [phone] SP September, School physical exam V70.5 a nd Screening for tuberculosis V74.1 SP [facility] [address] [facility] [id number] [address] [place] [phone] SP September, Major depression, recurrent 296.30 ; Anxiety 300.00 and No SP on [place] II V71.09 [facility] [address] [facility] [id number] [address] [place] [phone] SP Aug, SP [facility] [address] [facility] [id number] [address] [place] [phone] SP Aug, SP [facility] [address] [facility] [id number] [address] [place] [phone] SP Jul, SP [facility] [address] [facility] [id number] [address] [place] [phone] SP Jul, SP [facility] [address] [id number] [facility] [place] [address] SP Jul, SP [facility] [address] [id number] [address] [place] [address], [place] [address] SP Jul, SP [facility] [address] [id number] [address] [place] [address], [place] [address] SP Jul, SP [facility] [address] [id number] [address] [place] [address], [place] [address] SP Jul, SP [facility] [address] [id number] [address] [place] [address], [place] [address] SP Jul, SP [facility] [address] [id number] [address] [place] [address], [place] [address] SP Jul, SP [facility] [address] [id number] [address] [place] [address], [place] [address] SP Jul, 2014 SP [facility] [address] [id number] [address] [place] [address], [place] [address] SP Jul, SP [facility] [address] [id number] [address] [place] [address], [place] [address] SP Jul, SP [facility] [address] [id number] [address] [place] [address], [place] [address] SP Jul, SP [facility] [address] [id number] [address] [place] [address], [place] [address] SP Jul, SP [facility] [address] [id number] [address] [place] [address], [place] [address] SP Jun, SP [facility] [address] [id number] [address] [place] [address], [place] [address] SP Jun, 2014 SP [facility] [address] [id number] [address] [place] [address], [place] [address] SP Jun, SP [facility] [address] [id number] [address] [place] [address], [place] [address] SP Jun, 2014 SP [facility] [address] [id number] [address] [place] [address], [place] [address] SP Jun, 2014 SP [facility] [address] [id number] [address] [place] [address], [place] [address] SP Jun, 2014 SP [facility] [address] [id number] [address] [place] [address], [place] [address] SP Jun, 2014 SP [facility] [address] [id number] [address] [place] [address], [place] [address] SP Jun, 2014 SP [facility] [address] [id number] [address] [place] [address], [place] [address] SP Jun, 2014 SP [facility] [address] [id number] [address] [place] [address], [place] [address] SP Jun, 2014 SP [facility] [address] [id number] [address] [place] [address], [place] [address] SP May, SP [facility] [address] [id number] [address] [place] [address], [place] [address] SP May, SP [facility] [address] [id number] [address] [place] [address], [place] [address] SP May, SP [facility] [address] [id number] [address] [place] [address], [place] [address] SP May, SP [facility] [address] [id number] [address] [place] [address], [place] [address] SP Jan, SP [facility] [address] [id number] [address] [place] [address], [place] [address] SP Jan, SP [facility] [address] [id number] [address] [place] [address], [place] [address] SP Aug, SP [facility] [address] [id number] [address] [place] [address], [place] [address] SP Aug, SP [facility] [address] [id number] [address] [place] [address], [place] [address] SP Aug, SP [facility] [address] [id number] [address] [place] [address], [place] [address] SP Aug, SP [facility] [address] [id number] [address] [place] [address], [place] [address] SP May, SP [facility] [address] [id number] [address] [place] [address], [place] [address] SP May, SP [facility] [address] [id number] [address] [place] [address], [place] [address] SP Feb, SP [facility] [address] [id number] [address] [place] [address], [place] [address] SP Feb, SP [facility] [address] [id number] [address] [place] [address], [place] [address] SP Feb, SP [facility] [address] [id number] [address] [place] [address], [place] [address] SP Feb, SP [facility] [address] [id number] [address] [place] [address], [place] [address] SP Feb, SP [facility] [address] [id number] [address] [place] [address], [place] [address] SP Dec, SP [facility] [address] [id number] [address] [place] [address], [place] [address] SP Oct, SP [facility] [address] [id number] [address] [place] [address], [place] [address] SP September, SP [facility] [address] [id number] [address] [place] [address], [place] [address] SP Aug, SP [facility] [address] [id number] [address] [place] [address], [place] [address] SP Nov, SP [facility] [address] [id number] [address] [place] [address], [place] [address] SP Nov, SP [facility] [address] [facility] [id number] [address] [place] [address] SP Nov, SP IMMUNIZATIONS No Known Immunizations SOCIAL HISTORY Never Assessed REASON FOR VISIT PLAN OF CARE VITAL SIGNS MEDICATIONS No Known Medications RESULTS No Results PROCEDURES No Known procedures INSTRUCTIONS MEDICATIONS ADMINISTERED No Known Medications MEDICAL (GENERAL) HISTORY Type Description Date POS Medical History anxiety SP Hospitalization History healthy 2015 SP
--- OUTSIDE RECORDS SUMMARY | 2019-03-22 21:58 | XMS REPORT ---
Author Author Migration, Doctor POS Organization [facility] SP Address Unknown SP Phone Unavailable SP Care Team Providers Care Masonry Instructor Name Role Phone POS Migration, Doctor Unavailable Unavailable SP PROBLEMS Type Condition ICD9-CM Code DMA74-ET Code Onset Dates Condition S tatus SNOMED POS Problem Anxiety F41.9 Active 70166539 POS Problem Other obesity due to excess calories E66.09 Active 755338344 SP Problem Body mass index (BMI) of 32.0-32.9 in adult Z68.32 Active 099074608 SP ALLERGIES No Information ENCOUNTERS Encounter Location Date Diagnosis POS [facility] [address] [facility] [id number] [place] [address] SP Nov, Acute bilateral back pain, u nspecified back location M54.9 SP [facility] [address] [facility] [id number] [address] [place] [address] SP Oct, Heart palpitations R00.2 SP [facility] [address] [place] [id number] [place] [phone] SP Aug, Anxiety F41.9 ; Heart palpit ations R00.2 ; Marijuana use in SP F12.90 ; Other obesity due to excess calories E66.09 and Body mass index (BMI) of 32.0-32.9 in adult Z68.32 [facility] [address] [facility] [id number] [address] [place] [address] SP Jun, Heart palpitations R00.2 SP [facility] [address] [id number] [address] [place] [id number] SP Feb, Encounter for dental examina tion and cleaning without abnormal SP Z01.20 [facility] [address] [id number] [address] [place] [address] [id number] SP Nov, Dental examination Z01.20 SP [facility] [address] [id number] [address] [place] [address] [id number] SP Nov, Dental examination Z01.20 SP [facility] [address] [id number] [address] [place] [address] [id number] SP Mar, Encounter for dental examina tion Z01.20 SP [facility] [address] [facility] [id number] [address] [place] [phone] SP Jan, SP [facility] [address] [place] [id number] [address] [place] [phone] SP Oct, Social anxiety disorder 300. 23 and Attention deficit disorder SP [facility] [address] [facility] [id number] [address] [place] [phone] SP September, SP [facility] [address] [place] [id number] [address] [place] [phone] SP September, Social anxiety disorder 300. 23 and Attention deficit disorder SP [facility] [address] [place] [id number] [address] [place] [phone] SP September, School physical exam V70.5 a nd Screening for tuberculosis V74.1 SP [facility] [address] [place] [place] [id number] [address] [place] [phone] SP September, Major depression, recurrent 296.30 ; Anxiety 300.00 and No SP on [place] II V71.09 [facility] [address] [place] [place] [id number] [address] [place] [phone] SP Aug, SP [facility] [address] [place] [id number] [address] [place] [phone] SP Aug, SP [facility] [address] [facility] [id number] [address] [place] [phone] SP Jul, SP [facility] [address] [place] [id number] [address] [place] [phone] SP Jul, SP [facility] [address] [place] [id number] [address] [place] [phone] SP Jul, SP [facility] [address] [id number] [facility] [place] [address] SP Jul, SP [facility] [address] [id number] [address] [place] [address], [place] [address] SP Jul, SP [facility] [address] [id number] [address] [place] [address], [place] [address] SP Jul, SP [facility] [address] [id number] [address] [place] [address], [place] [address] SP Jul, SP [facility] [address] [id number] [address] [place] [address], [place] [address] SP Jul, SP [facility] [address] [id number] [address] [place] [address], [place] [address] SP Jul, 2014 SP [facility] [address] [id number] [address] [place] [address], [place] [address] SP Jul, SP [facility] [address] [id number] [address] [place] [address], [place] [address] SP Jul, SP [facility] [address] [id number] [address] [place] [address], [place] [address] SP Jul, SP [facility] [address] [id number] [address] [place] [address], [place] [address] SP Jul, SP [facility] [address] [id number] [address] [place] [address], [place] [address] SP Jun, 2014 SP [facility] [address] [id number] [address] [place] [address], [place] [address] SP Jun, 2014 SP [facility] [address] [id number] [address] [place] [address], [place] [address] SP Jun, 2014 SP [facility] [address] [id number] [address] [place] [address], [place] [address] SP Jun, 2014 SP [facility] [address] [id number] [address] [place] [address], [place] [address] SP Jun, 2014 SP [facility] [address] [id number] [address] [place] [address], [place] [address] SP Jun, 2014 SP [facility] [address] [id number] [address] [place] [address], [place] [address] SP Jun, 2014 SP [facility] [address] [id number] [address] [place] [address], [place] [address] SP Jun, 2014 SP [facility] [address] [id number] [address] [place] [address], [place] [address] SP Jun, 2014 SP [facility] [address] [id number] [address] [place] [address], [place] [address] SP Jun, 2014 SP [facility] [address] [id number] [address] [place] [address], [place] [address] SP May, SP [facility] [address] [id number] [address] [place] [address], [place] [address] SP May, SP [facility] [address] [id number] [address] [place] [address], [place] [address] SP May, SP [facility] [address] [id number] [address] [place] [address] SP May, SP [facility] [address] [id number] [address] [place] [address] SP Jan, SP [facility] [address] [id number] [address] [place] [address] SP Jan, SP [facility] [address] [id number] [address] [place] [address], [place] [address] SP Aug, SP [facility] [address] [id number] [address] [place] [address], [place] [address] SP Aug, SP [facility] [address] [id number] [address] [place] [address], [place] [address] SP Aug, SP [facility] [address] [id number] [address] [place] [address], [place] [address] SP Aug, SP [facility] [address] [id number] [address] [place] [address], [place] [address] SP May, SP [facility] [address] [id number] [address] [place] [address], [place] [address] SP May, SP [facility] [address] [id number] [address] [place] [address], [place] [address] SP Feb, SP [facility] [address] [id number] [address] [place] [address], [place] [address] SP Feb, SP [facility] [address] [id number] [address] [place] [address], [place] [address] SP Feb, SP [facility] [address] [id number] [address] [place] [address], [place] [address] SP Feb, SP [facility] [address] [id number] [address] [place] [address], [place] [address] SP Feb, SP [facility] [address] [id number] [address] [place] [address], [place] [address] SP Dec, SP [facility] [address] [id number] [address] [place] [address], [place] [address] SP Oct, SP [facility] [address] [id number] [address] [place] [address], [place] [address] SP September, SP [facility] [address] [id number] [address] [place] [address], [place] [address] SP Aug, SP [facility] [address] [id number] [address] [place] [address], [place] [address] SP Nov, SP [facility] [address] [id number] [address] [place] [address], [place] [address] SP Nov, SP [facility] [address] [id number] [address] [place] [address], [place] [address] SP Nov, SP IMMUNIZATIONS No Known Immunizations SOCIAL HISTORY Never Assessed REASON FOR VISIT EMR-[facility] PLAN OF CARE VITAL SIGNS MEDICATIONS No Known Medications RESULTS No Results PROCEDURES No Known procedures INSTRUCTIONS MEDICATIONS ADMINISTERED No Known Medications MEDICAL (GENERAL) HISTORY Type Description Date POS Medical History anxiety SP Hospitalization History healthy 2015 SP
--- OUTSIDE RECORDS SUMMARY | 2019-03-22 21:59 | XMS REPORT ---
Author Author GLORIA HI BONIFACIO POS Organization [facility] [place] SP Address [address] [place] [address] SP Care Team Providers Care Stone And Concrete Washer Name Role Phone POS BNOIFACIO ADAMS Unavailable SP PROBLEMS Type Condition ICD9-CM Code [id number] Code Onset Dates Condition S tatus SNOMED POS Problem Other obesity due to excess calories E66.09 Active 351858164 POS Problem Anxiety F41.9 Active 49992578 SP Problem Body mass index (BMI) of 32.0-32.9 in adult Z68.32 Active 916813522 SP ALLERGIES No Known Allergies ENCOUNTERS Encounter Location Date Diagnosis POS [facility] [address] [facility] [id number] [address] [place] [address] SP Nov, Acute bilateral back pain, u nspecified back location M54.9 SP [facility] [address] [facility] [id number] [place] [address] SP Oct, Heart palpitations R00.2 SP [facility] [place] [address] [facility] [id number] [place] [phone] SP Aug, Anxiety F41.9 ; Heart palpit ations R00.2 ; Marijuana use in SP F12.90 ; Other obesity due to excess calories E66.09 and Body mass index (BMI) of 32.0-32.9 in adult Z68.32 [facility] [address] [facility] [id number] [address] [place] [address] SP Jun, Heart palpitations R00.2 SP [facility] [address] [facility] [id number] [address] [address] [id number] SP Feb, Encounter for dental examina tion and cleaning without abnormal SP Z01.20 [facility] [address] [id number] [address] [address] [phone] SP Nov, Dental examination Z01.20 SP [facility] [address] [id number] [address] [place] [address] [phone] SP Nov, Dental examination Z01.20 SP [facility] [address] [id number] [address] [address] [phone] SP Mar, Encounter for dental examina tion Z01.20 SP [facility] [place] [address] [facility] [id number] [address] [place] [phone] SP Jan, SP [facility] [place] [address] [facility] [id number] [address] [place] [phone] SP Oct, Social anxiety disorder 300. 23 and Attention deficit disorder SP [facility] [place] [address] [facility] [id number] [address] [place] [phone] SP September, SP [facility] [place] [address] [facility] [id number] [address] [place] [id number] SP September, Social anxiety disorder 300. 23 and Attention deficit disorder SP [facility] [place] [address] [facility] [id number] [address] [place] [phone] SP September, School physical exam V70.5 a nd Screening for tuberculosis V74.1 SP [facility] [place] [address] [facility] [id number] [address] [place] [phone] SP September, Major depression, recurrent 296.30 ; Anxiety 300.00 and No SP on [place] V71.09 [facility] [place] [address] [facility] [id number] [address] [place] [phone] SP Aug, SP [facility] [place] [address] [facility] [id number] [address] [place] [phone] SP Aug, SP [facility] [place] [address] [facility] [id number] [address] [place] [phone] SP Jul, SP [facility] [place] [address] [facility] [id number] [address] [place] [phone] SP Jul, SP [facility] [address] [id number] [facility] [place] [address] SP Jul, SP [facility] [address] [id number] [address] [place] [address], [place] [address] SP Jul, SP [facility] [address] [id number] [address] [place] [address], [place] [address] SP Jul, SP [facility] [address] [id number] [address] [place] [address], [place] [address] SP Jul, SP [facility] [address] [id number] [address] [place] [address], [place] [address] SP Jul, SP [facility] [address] [id number] [address] [place] [address], [place] [address] SP Jul, SP [facility] [address] [id number] [address] [place] [address], [place] [address] SP Jul, SP [facility] [address] [id number] [address] [place] [address], [place] [address] SP Jul, SP [facility] [address] [id number] [address] [place] [address], [place] [address] SP Jul, SP [facility] [address] [id number] [address] [place] [address], [place] [address] SP Jul, SP [facility] [address] [id number] [address] [place] [address], [place] [address] SP Jul, SP [facility] [address] [id number] [address] [place] [address], [place] [address] SP Jun, SP [facility] [address] [id number] [address] [place] [address], [place] [address] SP Jun, SP [facility] [address] [id number] [address] [place] [address], [place] [address] SP Jun, SP [facility] [address] [id number] [address] [place] [address], [place] [address] SP Jun, 2014 SP [facility] [address] [id number] [address] [place] [address], [place] [address] SP Jun, 2014 SP [facility] [address] [id number] [address] [place] [address], [place] [address] SP Jun, 2014 SP [facility] [address] [id number] [address] [place] [address], [place] [address] SP Jun, 2014 SP [facility] [address] [id number] [address] [place] [address], [place] [address] SP Jun, 2014 SP [facility] [address] [id number] [address] [place] [address], [place] [address] SP Jun, 2014 SP [facility] [address] [id number] [address] [place] [address], [place] [address] SP Jun, 2014 SP [facility] [address] [id number] [address] [place] [address], [place] [address] SP May, SP [facility] [address] [id number] [address] [place] [address], [place] [address] SP May, SP [facility] [address] [id number] [address] [place] [address], [place] [address] SP May, SP [facility] [address] [id number] [address] [place] [address], [place] [address] SP May, SP [facility] [address] [id number] [address] [place] [address], [place] [address] SP Jan, SP [facility] [address] [id number] [address] [place] [address], [place] [address] SP Jan, SP [facility] [address] [id number] [address] [place] [address], [place] [address] SP Aug, SP [facility] [address] [id number] [address] [place] [address], [place] [address] SP Aug, SP [facility] [address] [id number] [address] [place] [address], [place] [address] SP Aug, SP [facility] [address] [id number] [address] [place] [address], [place] [address] SP Aug, SP [facility] [address] [id number] [address] [place] [address], [place] [address] SP May, SP [facility] [address] [id number] [address] [place] [address], [place] [address] SP May, SP [facility] [address] [id number] [address] [place] [address], [place] [address] SP Feb, SP [facility] [address] [id number] [address] [place] [address], [place] [address] SP Feb, SP [facility] [address] [id number] [address] [place] [address], [place] [address] SP Feb, SP [facility] [address] [id number] [address] [place] [address], [place] [address] SP Feb, SP [facility] [address] [id number] [address] [place] [address], [place] [address] SP Feb, SP [facility] [address] [id number] [address] [place] [address], [place] [address] SP Dec, SP [facility] [address] [id number] [address] [place] [address], [place] [address] SP Oct, SP [facility] [address] [id number] [address] [place] [address], [place] [address] SP September, SP [facility] [address] [id number] [address] [place] [address], [place] [address] SP Aug, SP [facility] [address] [id number] [address] [place] [address], [place] [address] SP Nov, SP [facility] [address] [id number] [address] [place] [address], [place] [address] SP Nov, SP [facility] [address] [facility] [id number] [address] [place] [address] SP Nov, SP IMMUNIZATIONS No Known Immunizations SOCIAL HISTORY Never Assessed REASON FOR VISIT back pain-the patient was gardening this weekend and started having back pain bu t it is getting worse. She saw the chiropractor this morning but feels her musc les are extremely tight.--LATA Rios PLAN OF CARE Activity Details POS SP Follow Up prn Reason: SP VITAL SIGNS Height 64 in 2017-11-14 POS Weight 186 lbs 2017-11-14 POS Temperature 98.5 degrees Fahrenheit 2017-11-14 POS Heart Rate 72 bpm 2017-11-14 POS Respiratory Rate 20 2017-11-14 POS BMI 31.92 kg/m2 2017-11-14 POS Blood pressure systolic 134 mmHg 2017-11-14 POS Blood pressure diastolic 78 mmHg 2017-11-14 POS MEDICATIONS Medication Instructions Dosage Frequency Start Date End Date Duration S tatus POS Ortho Tri-Cyclen (28) 0.18/0.215/0.25 MG-35 MCG Orally Once a day 1 tablet 24h SP Active SP Ibuprofen 800 MG Orally Three times a day as needed 1 tab let with food or milk SP needed Nov, Active SP Cyclobenzaprine HCl 10 mg Orally Three times a day 1 tablet as need ed 8h Nov, [id number] Nov, 10 days Active SP RESULTS No Results PROCEDURES No Known procedures INSTRUCTIONS MEDICATIONS ADMINISTERED No Known Medications MEDICAL (GENERAL) HISTORY Type Description Date POS Medical History anxiety SP Hospitalization History healthy 2015 SP
--- OUTSIDE RECORDS SUMMARY | 2019-03-22 21:59 | XMS REPORT ---
Author Author RIDGE PERKINS POS Organization [facility] [place] SP Address [address] [place] [address] SP Care Team Providers Care Wheel Press Operator Name Role Phone POS RIDGE PERKINS Unavailable SP PROBLEMS Type Condition ICD9-CM Code [id number] Code Onset Dates Condition S tatus SNOMED POS Problem Other obesity due to excess calories E66.09 Active 243228280 POS Problem Anxiety F41.9 Active 28113948 SP Problem Body mass index (BMI) of 32.0-32.9 in adult Z68.32 Active 148056393 SP ALLERGIES No Known Allergies ENCOUNTERS Encounter Location Date Diagnosis POS [facility] [address] [facility] [id number] [address] [place] [address] SP Nov, Acute bilateral back pain, u nspecified back location M54.9 SP [facility] [address] [facility] [id number] [address] [place] [address] SP Oct, Heart palpitations R00.2 SP [facility] [place] [address] [facility] [id number] [address] [place] [phone] SP Aug, Anxiety F41.9 ; Heart palpit ations R00.2 ; Marijuana use in SP F12.90 ; Other obesity due to excess calories E66.09 and Body mass index (BMI) of 32.0-32.9 in adult Z68.32 [facility] [address] [facility] [id number] [address] [place] [address] SP Jun, Heart palpitations R00.2 SP [facility] [address] [id number] [address] [place] [address] [id number] SP Feb, Encounter for dental examina tion and cleaning without abnormal SP Z01.20 [facility] [address] [id number] [address] [place] [address] [id number] SP Nov, Dental examination Z01.20 SP [facility] [address] [id number] [place] [id number] SP Nov, Dental examination Z01.20 SP [facility] [address] [id number] [address] [place] [address] [id number] SP Mar, Encounter for dental examina tion Z01.20 SP [facility] [place] [address] [facility] [id number] [address] [place] [phone] SP Jan, SP [facility] [place] [address] [facility] [id number] [address] [place] [phone] SP Oct, Social anxiety disorder 300. 23 and Attention deficit disorder SP [facility] [place] [address] [facility] [id number] [address] [place] [phone] SP September, SP [facility] [place] [address] [facility] [id number] [address] [place] [phone] SP September, Social anxiety disorder 300. 23 and Attention deficit disorder SP [facility] [place] [address] [facility] [id number] [address] [place] [phone] SP September, School physical exam V70.5 a nd Screening for tuberculosis V74.1 SP [facility] [place] [address] [facility] [id number] [address] [place] [phone] SP September, Major depression, recurrent 296.30 ; Anxiety 300.00 and No SP on [place] II V71.09 [facility] [place] [address] [facility] [id number] [address] [place] [phone] SP Aug, SP [facility] [place] [address] [facility] [id number] [address] [place] [phone] SP Aug, SP [facility] [place] [address] [facility] [id number] [address] [place] [phone] SP Jul, SP [facility] [place] [address] [place] [id number] [address] [place] [phone] SP Jul, SP [facility] [place] [address] [place] [id number] [address] [place] [address], [place] [address] SP Jul, SP [facility] [address] [id number] [address] [place] [address], [place] [address] SP Jul, SP [facility] [address] [id number] [address] [place] [address], [place] [address] SP Jul, SP [facility] [address] [id number] [address] [place] [address], [place] [address] SP Jul, SP [facility] [address] [id number] [address] [place] [address], [place] [address] SP Jul, SP [facility] [address] [id number] [address] [place] [address], [place] [address] SP Jul, SP [facility] [address] [id number] [address] [place] [address], [place] [address] SP Jul, SP [facility] [address] [id number] [address] [place] [address], [place] [address] SP Jul, SP [facility] [address] [id number] [address] [place] [address], [place] [address] SP Jul, SP [facility] [address] [id number] [address] [place] [address], [place] [address] SP Jul, SP [facility] [address] [id number] [address] [place] [address], [place] [address] SP Jul, SP [facility] [address] [id number] [address] [place] [address], [place] [address] SP Jun, SP [facility] [address] [id number] [address] [place] [address], [place] [address] SP Jun, 2014 SP [facility] [address] [id number] [address] [place] [address], [place] [address] SP Jun, SP [facility] [address] [id number] [address] [place] [address], [place] [address] SP Jun, SP [facility] [address] [id number] [address] [place] [address], [place] [address] SP Jun, 2014 SP [facility] [address] [id number] [address] [place] [address], [place] [address] SP Jun, 2014 SP [facility] [address] [id number] [address] [place] [address], [place] [address] SP Jun, 2014 SP [facility] [address] [id number] [address] [place] [address], [place] [address] SP Jun, 2014 SP [facility] [address] [id number] [address] [place] [address], [place] [address] SP Jun, 2014 SP [facility] [address] [id number] [address] [place] [address], [place] [address] SP Jun, 2014 SP [facility] [address] [id number] [address] [place] [address], [place] [address] SP May, SP [facility] [address] [id number] [address] [place] [address], [place] [address] SP May, SP [facility] [address] [id number] [address] [place] [address], [place] [address] SP May, SP [facility] [address] [id number] [address] [place] [address], [place] [address] SP May, SP [facility] [address] [id number] [address] [place] [address], [place] [address] SP Jan, SP [facility] [address] [id number] [address] [place] [address], [place] [address] SP Jan, SP [facility] [address] [id number] [address] [place] [address], [place] [address] SP Aug, SP [facility] [address] [id number] [address] [place] [address], [place] [address] SP Aug, SP [facility] [address] [id number] [address] [place] [address], [place] [address] SP Aug, SP [facility] [address] [id number] [address] [place] [address], [place] [address] SP Aug, SP [facility] [address] [id number] [address] [place] [address], [place] [address] SP May, SP [facility] [address] [id number] [address] [place] [address], [place] [address] SP May, SP [facility] [address] [id number] [address] [place] [address], [place] [address] SP Feb, SP [facility] [address] [id number] [address] [place] [address], [place] [address] SP Feb, SP [facility] [address] [id number] [address] [place] [address], [place] [address] SP Feb, SP [facility] [address] [id number] [address] [place] [address], [place] [address] SP Feb, SP [facility] [address] [id number] [address] [place] [address], [place] [address] SP Feb, SP [facility] [address] [id number] [address] [place] [address], [place] [address] SP Dec, SP [facility] [address] [id number] [address] [place] [address], [place] [address] SP Oct, SP [facility] [address] [id number] [address] [place] [address], [place] [address] SP September, SP [facility] [address] [id number] [address] [place] [address], [place] [address] SP Aug, SP [facility] [address] [id number] [address] [place] [address], [place] [address] SP Nov, SP [facility] [address] [id number] [address] [place] [address], [place] [address] SP Nov, SP [facility] [address] [facility] [id number] [address] [place] [address] SP Nov, SP IMMUNIZATIONS No Known Immunizations SOCIAL HISTORY Never Assessed REASON FOR VISIT est care--tjanssenMA, --c/o heart palpuations awhile ago and hasnt happened sinc e then. Roughly 1 month ago. PLAN OF CARE Activity Details POS SP Follow Up 6 Months, prn Reason:chm SP VITAL SIGNS Height 64 in 2017-08-26 POS Weight 187 lbs 2017-08-26 POS Temperature 98.1 degrees Fahrenheit 2017-08-26 POS Heart Rate 74 bpm 2017-08-26 POS Respiratory Rate 20 2017-08-26 POS BMI 32.09 kg/m2 2017-08-26 POS Blood pressure systolic 122 mmHg 2017-08-26 POS Blood pressure diastolic 82 mmHg 2017-08-26 POS MEDICATIONS Medication Instructions Dosage Frequency Start Date End Date Duration S tatus POS Ortho Tri-Cyclen (28) 0.18/0.215/0.25 MG-35 MCG Orally Once a day 1 tablet 24h SP Active SP RESULTS No Results PROCEDURES No Known procedures INSTRUCTIONS MEDICATIONS ADMINISTERED No Known Medications MEDICAL (GENERAL) HISTORY Type Description Date POS Medical History anxiety SP Hospitalization History healthy 2015 SP
--- OUTSIDE RECORDS SUMMARY | 2019-03-22 21:59 | XMS REPORT ---
Author Author MILLER AGUIRRE POS Organization [facility] SP Address [address] [place] [address] SP Care Team Providers Care Print Production Associate Name Role Phone POS MILLER AGUIRRE Unavailable SP PROBLEMS Type Condition ICD9-CM Code CIF37-IC Code Onset Dates Condition S tatus SNOMED POS Problem Other obesity due to excess calories E66.09 Active 651712801 POS Problem Anxiety F41.9 Active 97172877 SP Problem Body mass index (BMI) of 32.0-32.9 in adult Z68.32 Active 998762888 SP ALLERGIES No Information ENCOUNTERS Encounter Location Date Diagnosis POS [facility] [address] [facility] [id number] [address] [place] [address] SP Nov, Acute bilateral back pain, u nspecified back location M54.9 SP [facility] [address] [facility] [id number] [address] [place] [address] SP Oct, Heart palpitations R00.2 SP [facility] [address] [facility] [id number] [address] [place] [address] SP Aug, Anxiety F41.9 ; Heart palpit ations R00.2 ; Marijuana use in SP F12.90 ; Other obesity due to excess calories E66.09 and Body mass index (BMI) of 32.0-32.9 in adult Z68.32 [facility] [address] [facility] [id number] [address] [place] [address] SP Jun, Heart palpitations R00.2 SP [facility] [address] [id number] [address] [place] [id number] SP Feb, Encounter for dental examina tion and cleaning without abnormal SP Z01.20 [facility] [address] [id number] [address] [place] [id number] SP Nov, Dental examination Z01.20 SP [facility] [address] [facility] [id number] [address] [place] [address] [id number] SP Nov, Dental examination Z01.20 SP [facility] [address] [id number] [address] [place] [address] [id number] SP Mar, Encounter for dental examina tion Z01.20 SP [facility] [address] [facility] [id number] [address] [place] [address] SP Jan, SP [facility] [address] [facility] [id number] [address] [place] [phone] SP Oct, Social anxiety disorder 300. 23 and Attention deficit disorder SP [facility] [address] [id number] [address] [place] [id number] SP September, SP [facility] [address] [id number] [address] [place] [phone] SP September, Social anxiety disorder 300. 23 and Attention deficit disorder SP [facility] [address] [facility] [id number] [address] [place] [address] SP September, School physical exam V70.5 a nd Screening for tuberculosis V74.1 SP [facility] [address] [id number] [address] [place] [phone] SP September, Major depression, recurrent 296.30 ; Anxiety 300.00 and No SP on [place] II V71.09 [facility] [address] [facility] [id number] [address] [place] [phone] SP Aug, SP [facility] [address] [facility] [id number] [address] [place] [address] SP Aug, SP [facility] [address] [id number] [address] [place] [phone] SP Jul, SP [facility] [address] [id number] [address] [place] [phone] SP Jul, SP [facility] [address] [id number] [address] [place] [address], [place] [address] SP Jul, SP [facility] [address] [id number] [address] [place] [address], [place] [address] SP Jul, SP [facility] [address] [id number] [address] [place] [address], [place] [address] SP Jul, SP [facility] [address] [id number] [address] [place] [address], [place] [address] SP Jul, SP [facility] [address] [id number] [address] [place] [address], [place] [address] SP Jul, SP [facility] [address] [id number] [address] [place] [address], [place] [address] SP Jul, SP [facility] [address] [id number] [address] [place] [address], [place] [address] SP Jul, SP [facility] [address] [id number] [address] [place] [address], [place] [address] SP Jul, SP [facility] [address] [id number] [address] [place] [address], [place] [address] SP Jul, SP [facility] [address] [id number] [address] [place] [address], [place] [address] SP Jul, SP [facility] [address] [id number] [address] [place] [address], [place] [address] SP Jul, SP [facility] [address] [id number] [address] [place] [address], [place] [address] SP Jun, SP [facility] [address] [id number] [address] [place] [address], [place] [address] SP Jun, 2014 SP [facility] [address] [id number] [address] [place] [address], [place] [address] SP Jun, SP [facility] [address] [id number] [address] [place] [address], [place] [address] SP Jun, 2014 SP [facility] [address] [id number] [address] [place] [address], [place] [address] SP Jun, 2014 SP [facility] [address] [id number] [address] [place] [address], [place] [address] SP Jun, 2014 SP [facility] [address] [id number] [address] [place] [address], [place] [address] SP Jun, 2014 SP [facility] [address] [id number] [address] [place] [address], [place] [address] SP Jun, 2014 SP [facility] [address] [id number] [address] [place] [address], [place] [address] SP Jun, 2014 SP [facility] [address] [id number] [address] [place] [address], [place] [address] SP Jun, 2014 SP [facility] [address] [id number] [address] [place] [address], [place] [address] SP May, SP [facility] [address] [id number] [address] [place] [address], [place] [address] SP May, SP [facility] [address] [id number] [address] [place] [address], [place] [address] SP May, SP [facility] [address] [id number] [address] [place] [address], [place] [address] SP May, SP [facility] [address] [id number] [address] [place] [address], [place] [address] SP Jan, SP [facility] [address] [id number] [address] [place] [address], [place] [address] SP Jan, SP [facility] [address] [id number] [address] [place] [address], [place] [address] SP Aug, SP [facility] [address] [id number] [address] [place] [address], [place] [address] SP Aug, SP [facility] [address] [id number] [address] [place] [address], [place] [address] SP Aug, SP [facility] [address] [id number] [address] [place] [address], [place] [address] SP Aug, SP [facility] [address] [id number] [address] [place] [address], [place] [address] SP May, SP [facility] [address] [id number] [address] [place] [address], [place] [address] SP May, SP [facility] [address] [id number] [address] [place] [address], [place] [address] SP Feb, SP [facility] [address] [id number] [address] [place] [address], [place] [address] SP Feb, SP [facility] [address] [id number] [address] [place] [address], [place] [address] SP Feb, SP [facility] [address] [id number] [address] [place] [address], [place] [address] SP Feb, SP [facility] [address] [id number] [address] [place] [address], [place] [address] SP Feb, SP [facility] [address] [id number] [address] [place] [address], [place] [address] SP Dec, SP [facility] [address] [id number] [address] [place] [address], [place] [address] SP Oct, SP [facility] [address] [id number] [address] [place] [address], [place] [address] SP September, SP [facility] [address] [id number] [address] [place] [address], [place] [address] SP Aug, SP [facility] [address] [id number] [address] [place] [address], [place] [address] SP Nov, SP [facility] [address] [id number] [address] [place] [address], [place] [address] SP Nov, [facility] [address] [facility] [facility] [id number] [address] [place] [address] SP Nov, SP IMMUNIZATIONS No Known Immunizations SOCIAL HISTORY Never Assessed REASON FOR VISIT PLAN OF CARE VITAL SIGNS MEDICATIONS No Known Medications RESULTS No Results PROCEDURES No Known procedures INSTRUCTIONS MEDICATIONS ADMINISTERED No Known Medications MEDICAL (GENERAL) HISTORY Type Description Date POS Medical History anxiety SP Hospitalization History healthy 2015 SP
--- OUTSIDE RECORDS SUMMARY | 2019-03-22 21:59 | XMS REPORT ---
Author Author SHANICE MANN POS Organization [employer] SP Address Unknown SP Phone Unavailable SP Care Team Providers Care Special Technical Operations Officer Name Role Phone POS SHANICE MANN CP Unavailable SP Allergies, Adverse Reactions, Alerts Substance Reaction Event Type POS N.K.D.A. Info Not Available Non Drug Allergy SP Problems Problem Type Condition Code Onset Dates Condition Statu s POS Problem Screening for malignant neoplasm of the cervix V76.2 Active SP Problem Influenza with other respiratory manifestations 487.1 Active SP Problem Routine gynecological examination V72.31 Active SP Problem Screening examination for venereal disease V74.5 Active SP Problem General counseling for prescription of oral contracept kirt V25.01 SP Problem Encounter for dental examination Z01.20 Active SP Problem Generalized anxiety disorder 300.02 Active SP Problem Cannabis dependence, unspecified abuse 304.30 Active SP Problem Allergic rhinitis, cause unspecified 477.9 Active SP Problem Routine general medical examination at [facility] V70.0 SP Assessment Dental examination Z01.20 Active SP Problem Depressive disorder, not elsewhere classified 311 Active SP Problem Unspecified breast screening V76.10 Active SP Medications Medication Code System Code Instructions Start Date End Date Status Dosage POS [facility] [address] not defined SP Procedures Procedure Coding System Code Date POS Billing Notes on claim CPT-4 EC109 November 27, 2015 SP RESIN COMPOS - 2 SURFACES POSTERIOR CPT-4 D2392 November 27, 2015 SP Vital Signs Date/Time: November 27, 2015 POS Blood Pressure Diastolic 58 mmHg POS Blood Pressure Systolic 113 mmHg POS Height 64 in POS Results No Known Results Summary Purpose [employer] Submission
--- OUTSIDE RECORDS SUMMARY | 2019-03-22 21:59 | XMS REPORT ---
Author Author MEGAN TORIBIO POS Organization [employer] SP Address Unknown SP Phone Unavailable SP Care Team Providers Care Community Health Counselor Name Role Phone POS MEGAN TORIBIO CP Unavailable SP Allergies, Adverse Reactions, Alerts [...] SP Problem Routine general medical examination at [facility] V70.0 SP Assessment Dental examination Z01.20 Active SP Problem Depressive disorder, not elsewhere classified 311 Active SP Problem Unspecified breast screening V76.10 Active SP Medications Medication Code System Code Instructions Start Date End Date Status Dosage POS [facility] [address] not defined SP Procedures Procedure Coding System Code Date POS LTD ORAL EVALUATION - PROBLEM FOCUS CPT-4 D0140 November 18, 2015 SP Vital Signs Date/Time: November 18, 2015 POS Blood Pressure Diastolic 69 mmHg POS Blood Pressure Systolic 117 mmHg POS Height 64 in POS Results No Known Results Summary Purpose [employer] Submission
--- OUTSIDE RECORDS SUMMARY | 2019-03-22 21:59 | XMS REPORT ---
Author Author MILLER AGUIRRE POS [facility] SP Address [address] [place] [address] SP Care Team Providers Care Licensed Practical Nurse Instructor Name Role Phone POS MILLER AGUIRRE Unavailable SP PROBLEMS Type Condition ICD9-CM Code CEI20-TV Code Onset Dates Condition S tatus SNOMED POS Problem Other obesity due to excess calories E66.09 Active 765625890 POS Problem Anxiety F41.9 Active 64909305 SP Problem Body mass index (BMI) of 32.0-32.9 in adult Z68.32 Active 642825616 SP ALLERGIES No Known Allergies ENCOUNTERS Encounter Location Date Diagnosis POS [facility] [address] [id number] [address] [place] [address] SP Nov, Acute bilateral back pain, u nspecified back location M54.9 SP [facility] [address] [facility] [id number] [address] [place] [address] SP Oct, Heart palpitations R00.2 SP [facility] [address] [facility] [id number] [address] [place] [id number] SP Aug, Anxiety F41.9 ; Heart palpit ations R00.2 ; Marijuana use in SP F12.90 ; Other obesity due to excess calories E66.09 and Body mass index (BMI) of 32.0-32.9 in adult Z68.32 [facility] [address] [facility] [id number] [address] [place] [address] SP Jun, Heart palpitations R00.2 SP [facility] [address] [facility] [id number] [address] [place] [id number] SP Feb, Encounter for dental examina tion and cleaning without abnormal SP Z01.20 [facility] [address] [id number] [address] [place] [address] [id number] SP Nov, Dental examination Z01.20 SP [facility] [address] [id number] [address] [place] [id number] SP Nov, Dental examination Z01.20 SP [facility] [address] [id number] [address] [place] [address] [id number] SP Mar, Encounter for dental examina tion Z01.20 SP [facility] [address] [facility] [id number] [address] [place] [id number] SP Jan, SP [facility] [address] [facility] [id number] [address] [place] [phone] SP Oct, Social anxiety disorder 300. 23 and Attention deficit disorder SP [facility] [address] [facility] [id number] [address] [place] [id number] SP September, SP [facility] [id number] [place] [phone] SP September, Social anxiety disorder 300. 23 and Attention deficit disorder SP [facility] [address] [facility] [id number] [address] [place] [phone] SP September, School physical exam V70.5 a nd Screening for tuberculosis V74.1 SP [facility] [address] [id number] [address] [place] [phone] SP September, Major depression, recurrent 296.30 ; Anxiety 300.00 and No SP on [place] II V71.09 [facility] [address] [facility] [id number] [address] [place] [id number] SP Aug, SP [facility] [address] [facility] [id number] [address] [place] [phone] SP Aug, SP [facility] [address] [id number] [address] [place] [phone] SP Jul, SP [facility] [address] [id number] [address] [place] [phone] SP Jul, SP [facility] [address] [id number] [address] [place] [address], [place] [address] SP Jul, SP [facility] [address] [id number] [address] [place] [address], [place] [address] SP Jul, SP [facility] [address] [id number] [address] [place] [address], [place] [address] SP Jul, SP [facility] [address] [id number] [address] [place] [address], [place] [address] SP Jul, SP [facility] [address] [id number] [address] [place] [address], [place] [address] SP Jul, SP [facility] [address] [id number] [address] [place] [address], [place] [address] SP Jul, SP [facility] [address] [id number] [address] [place] [address], [place] [id number] SP Jul, SP [facility] [address] [id number] [address] [place] [address], [place] [id number] SP Jul, SP [facility] [address] [id number] [address] [place] [address], [place] [id number] SP Jul, SP [facility] [address] [id number] [address] [place] [address], [place] [id number] SP Jul, SP [facility] [address] [id number] [address] [place] [address], [place] [address] SP Jul, SP [facility] [address] [id number] [address] [place] [address], [place] [id number] SP Jun, SP [facility] [address] [id number] [address] [place] [address], [place] [id number] SP Jun, SP [facility] [address] [id number] [address] [place] [address], [place] [id number] SP Jun, SP [facility] [address] [id number] [address] [place] [address], [place] [id number] SP Jun, 2014 SP [facility] [address] [id number] [address] [place] [address], [place] [address] SP Jun, 2014 SP [facility] [address] [id number] [address] [place] [address], [place] [address] SP Jun, 2014 SP [facility] [address] [id number] [address] [place] [address], [place] [address] SP Jun, 2014 SP [facility] [address] [id number] [address] [place] [address], [place] [id number] SP Jun, 2014 SP [facility] [address] [id number] [address] [place] [address], [place] [id number] SP Jun, 2014 SP [facility] [address] [id number] [address] [place] [address], [place] [address] SP Jun, 2014 SP [facility] [address] [id number] [address] [place] [address], [place] [id number] SP May, SP [facility] [address] [id number] [address] [place] [address], [place] [address] SP May, SP [facility] [address] [id number] [address] [place] [address], [place] [id number] SP May, SP [facility] [address] [id number] [address] [place] [address], [place] [id number] SP May, SP [facility] [address] [id number] [address] [place] [address], [place] [id number] SP Jan, SP [facility] [address] [id number] [address] [place] [address], [place] [address] SP Jan, SP [facility] [address] [id number] [address] [place] [address], [place] [id number] SP Aug, SP [facility] [address] [id number] [address] [place] [address], [place] [id number] SP Aug, SP [facility] [address] [id number] [address] [place] [address], [place] [id number] SP Aug, SP [facility] [address] [id number] [address] [place] [address], [place] [id number] SP Aug, SP [facility] [address] [id number] [address] [place] [address], [place] [address] SP May, SP [facility] [address] [id number] [address] [place] [address], [place] [address] SP May, SP [facility] [address] [id number] [address] [place] [address], [place] [id number] SP Feb, SP [facility] [address] [id number] [address] [place] [address], [place] [id number] SP Feb, SP [facility] [address] [id number] [address] [place] [address], [place] [address] SP Feb, SP [facility] [address] [id number] [address] [place] [address], [place] [address] SP Feb, SP [facility] [address] [id number] [address] [place] [address], [place] [id number] SP Feb, SP [facility] [address] [id number] [address] [place] [address], [place] [id number] SP Dec, SP [facility] [address] [id number] [address] [place] [address], [place] [address] SP Oct, SP [facility] [address] [id number] [address] [place] [address], [place] [id number] SP September, SP [facility] [address] [id number] [address] [place] [address], [place] [id number] SP Aug, SP [facility] [address] [id number] [address] [place] [address], [place] [id number] SP Nov, SP [facility] [address] [id number] [address] [place] [address], [place] [id number] SP Nov, SP [facility] [address] [facility] [id number] [address] [place] [id number] SP Nov, SP IMMUNIZATIONS No Known Immunizations SOCIAL HISTORY Never Assessed REASON FOR VISIT for the past 5 days...feels like she is having heart palpatations. [email or web address] PLAN OF CARE Activity Details POS SP Follow Up prn Reason: SP VITAL SIGNS Height 64 in 2017-07-08 POS Weight 184.0 lbs 2017-07-08 POS Temperature 98.6 degrees Fahrenheit 2017-07-08 POS Heart Rate 80 bpm 2017-07-08 POS Respiratory Rate 20 2017-07-08 POS BMI 31.58 kg/m2 2017-07-08 POS Blood pressure systolic 114 mmHg 2017-07-08 POS Blood pressure diastolic 70 mmHg 2017-07-08 POS MEDICATIONS Medication Instructions Dosage Frequency Start Date End Date Duration S tatus POS Lutera 0.1-20 MG-MCG Orally Once a day 1 tablet 24h Not-Taking SP Garrard-3 Fatty Acids 1,000 mg 1 Capsule by Oral route 1 time per day May, Not-Taking SP Not-Taking SP Prenat w/o A Pcg-[id number]-[id number]-FA Not-Taking SP Vitamin Mixture Not-Taki ng SP HydrOXYzine Pamoate 25 MG Orally 2 times a day 1 capsule as need ed for anxiety SP September, Not-Taking SP Zyrtec Allergy 10 MG Orally Once a day 1 tablet as needed 24h Not-Taking SP RESULTS No Results PROCEDURES No Known procedures INSTRUCTIONS MEDICATIONS ADMINISTERED No Known Medications MEDICAL (GENERAL) HISTORY Type Description Date POS Medical History anxiety SP Hospitalization History healthy 2015 SP
--- OUTSIDE RECORDS SUMMARY | 2019-03-22 21:59 | XMS REPORT ---
Author Author Migration, Doctor POS Organization [facility] SP Address Unknown SP Phone Unavailable SP Care Team Providers Care Manager Banquet Name Role Phone POS Migration, Doctor Unavailable Unavailable SP PROBLEMS Type Condition ICD9-CM Code [id number] Code Onset Dates Condition S tatus SNOMED POS Problem Anxiety F41.9 Active 95282614 POS Problem Other obesity due to excess calories E66.09 Active 873053340 SP Problem Body mass index (BMI) of 32.0-32.9 in adult Z68.32 Active 720084759 SP ALLERGIES No Information ENCOUNTERS Encounter Location Date Diagnosis POS [facility] [address] [facility] [id number] [place] [address] SP Nov, Acute bilateral back pain, u nspecified back location M54.9 SP [facility] [address] [facility] [id number] [address] [place] [address] SP Oct, Heart palpitations R00.2 SP [facility] [id number] [place] [phone] SP Aug, Anxiety F41.9 ; Heart palpit ations R00.2 ; Marijuana use in SP F12.90 ; Other obesity due to excess calories E66.09 and Body mass index (BMI) of 32.0-32.9 in adult Z68.32 [facility] [address] [facility] [id number] [address] [place] [address] SP Jun, Heart palpitations R00.2 SP [facility] [address] [id number] [address] [place] [id number] SP Feb, Encounter for dental examina tion and cleaning without abnormal SP Z01.20 [facility] [address] [id number] [address] [place] [id number] SP Nov, Dental examination Z01.20 SP [facility] [address] [id number] [address] [place] [address] [id number] SP Nov, Dental examination Z01.20 SP [facility] [address] [id number] [address] [place] [id number] SP Mar, Encounter for dental examina tion Z01.20 SP [facility] [address] [facility] [id number] [address] [place] [phone] SP Jan, SP [facility] [address] [id number] [address] [place] [phone] SP Oct, Social anxiety disorder 300. 23 and Attention deficit disorder SP [facility] [address] [facility] [id number] [address] [place] [phone] SP September, SP [facility] [address] [id number] [address] [place] [phone] SP September, Social anxiety disorder 300. 23 and Attention deficit disorder SP [facility] [address] [id number] [address] [place] [phone] SP September, School physical exam V70.5 a nd Screening for tuberculosis V74.1 SP [facility] [address] [id number] [address] [place] [phone] SP September, Major depression, recurrent 296.30 ; Anxiety 300.00 and No SP on [place] II V71.09 [facility] [address] [id number] [address] [place] [phone] SP Aug, SP [facility] [address] [id number] [address] [place] [phone] SP Aug, SP [facility] [address] [facility] [id number] [address] [place] [phone] SP Jul, SP [facility] [address] [id number] [address] [place] [phone] SP Jul, SP [facility] [id number] [address] [place] [phone] SP Jul, SP [facility] [address] [id number] [facility] [address] SP Jul, SP [facility] [address] [id number] [address] [place] [address], [place] [address] SP Jul, SP [facility] [address] [id number] [address] [place] [address], [place] [address] SP Jul, SP [facility] [address] [id number] [address] [place] [address], [place] [address] SP Jul, SP [facility] [address] [id number] [address] [place] [address], [place] [address] SP Jul, SP [facility] [address] [id number] [address] [place] [address], [place] [address] SP Jul, 2014 SP [facility] [address] [id number] [address] [place] [address], [place] [address] SP Jul, SP [facility] [address] [id number] [address] [place] [address], [place] [address] SP Jul, SP [facility] [address] [id number] [address] [place] [address], [place] [address] SP Jul, SP [facility] [address] [id number] [address] [place] [address], [place] [address] SP Jul, SP [facility] [address] [id number] [address] [place] [address], [place] [address] SP Jun, 2014 SP [facility] [address] [id number] [address] [place] [address], [place] [address] SP Jun, 2014 SP [facility] [address] [id number] [address] [place] [address], [place] [address] SP Jun, 2014 SP [facility] [address] [id number] [address] [place] [address], [place] [address] SP Jun, 2014 SP [facility] [address] [id number] [address] [place] [address], [place] [address] SP Jun, 2014 SP [facility] [address] [id number] [address] [place] [address], [place] [address] SP Jun, 2014 SP [facility] [address] [id number] [address] [place] [address], [place] [address] SP Jun, 2014 SP [facility] [address] [id number] [address] [place] [address], [place] [address] SP Jun, 2014 SP [facility] [address] [id number] [address] [place] [address], [place] [address] SP Jun, 2014 SP [facility] [address] [id number] [address] [place] [address], [place] [address] SP Jun, 2014 SP [facility] [address] [id number] [address] [place] [address], [place] [address] SP May, SP [facility] [address] [id number] [address] [place] [address], [place] [address] SP May, SP [facility] [address] [id number] [address] [place] [address], [place] [address] SP May, SP [facility] [address] [id number] [address] [place] [phone] SP May, SP [facility] [address] [id number] [address] [place] [phone] SP Jan, SP [facility] [address] [id number] [address] [place] [phone] SP Jan, SP [facility] [address] [id number] [address] [place] [address], [place] [address] SP Aug, SP [facility] [address] [id number] [address] [place] [address], [place] [address] SP Aug, SP [facility] [address] [id number] [address] [place] [address], [place] [address] SP Aug, SP [facility] [address] [id number] [address] [place] [address], [place] [address] SP Aug, SP [facility] [address] [id number] [address] [place] [address], [place] [address] SP May, SP [facility] [address] [id number] [address] [place] [address], [place] [address] SP May, SP [facility] [address] [id number] [address] [place] [address], [place] [address] SP Feb, SP [facility] [address] [id number] [address] [place] [address], [place] [address] SP Feb, SP [facility] [address] [id number] [address] [place] [address], [place] [address] SP Feb, SP [facility] [address] [id number] [address] [place] [address], [place] [address] SP Feb, SP [facility] [address] [id number] [address] [place] [address], [place] [address] SP Feb, SP [facility] [address] [id number] [address] [place] [address], [place] [address] SP Dec, SP [facility] [address] [id number] [address] [place] [address], [place] [address] SP Oct, SP [facility] [address] [id number] [address] [place] [address], [place] [address] SP September, SP [facility] [address] [id number] [address] [place] [address], [place] [address] SP Aug, SP [facility] [address] [id number] [address] [place] [address], [place] [address] SP Nov, SP [facility] [address] [id number] [address] [place] [address], [place] [address] SP Nov, SP [facility] [address] [id number] [address] [place] [address], [place] [address] SP Nov, SP IMMUNIZATIONS No Known Immunizations SOCIAL HISTORY Never Assessed REASON FOR VISIT EMR-[facility] PLAN OF CARE VITAL SIGNS MEDICATIONS No Known Medications RESULTS No Results PROCEDURES No Known procedures INSTRUCTIONS MEDICATIONS ADMINISTERED No Known Medications MEDICAL (GENERAL) HISTORY Type Description Date POS Medical History anxiety SP Hospitalization History healthy 2015 SP
--- OUTSIDE RECORDS SUMMARY | 2019-03-22 22:00 | XMS REPORT ---
Author Author SUE ART POS Organization [employer] SP Address Unknown SP Phone Unavailable SP Care Team Providers Care Wrapper Opener Name Role Phone POS SUE ART CP Unavailable SP Allergies, Adverse Reactions, Alerts [...] SP Problem Routine general medical examination at [facility] V70.0 SP Assessment Encounter for dental examination Z01.20 Active SP Problem Depressive disorder, not elsewhere classified 311 Active SP Problem Unspecified breast screening V76.10 Active SP Medications No Known Medications Procedures Procedure Coding System Code Date POS INTRAORL-PERIAPICAL 1 FILM 52593 CPT-4 D0220 Mar 21, 2015 SP INTRAORL-PERIAPICAL EA ADD FILM CPT-4 D0230 Mar 21, 2015 SP COMP ORAL EVALUATION - NEW/EST PT CPT-4 D0150 Mar 21, 2015 SP BITEWINGS - FOUR FILMS CPT-4 D0274 Mar 21, 2 015 SP INTRAORL-PERIAPICAL EA ADD FILM CPT-4 D0230 Mar 21, 2015 SP TOPICAL FLUORIDE VARNISH CPT-4 D1206 Mar 21, 2015 SP PROPHYLAXIS - ADULT CPT-4 D1110 Mar 21, 2015 SP Vital Signs Date/Time: Mar 21, 2015 POS Blood Pressure Diastolic 80 mmHg POS Blood Pressure Systolic 122 mmHg POS Cardiac Monitoring Heart Rate 88 bpm POS Results No Known Results Summary Purpose [employer] Submission
--- OUTSIDE RECORDS SUMMARY | 2019-03-22 22:00 | XMS REPORT ---
Author Author DARIEN BLANCO POS Organization [employer] SP Address Unknown SP Phone Unavailable SP Care Team Providers Care Drilling Machine Operator Name Role Phone POS DARIEN BLANCO CP Unavailable SP Allergies No Known Allergies Problems Problem Type Condition ICD-9 Code Onset Dates Condition Statu s POS Problem Unspecified breast screening V76.10 Active SP Problem Routine gynecological examination V72.31 Active SP Problem Screening for malignant neoplasm of the cervix V76.2 Active SP Problem Depressive disorder, not elsewhere classified 311 Active SP Problem General counseling for prescription of oral contracept kirt V25.01 SP Problem Allergic rhinitis, cause unspecified 477.9 Active SP Problem Screening examination for venereal disease V74.5 Active SP Problem Cannabis dependence, unspecified abuse 304.30 Active SP Problem Influenza with other respiratory manifestations 487.1 Active SP Problem Routine general medical examination at [facility] V70.0 SP Problem Generalized anxiety disorder 300.02 Active SP Medications Medication Code System Code Instructions Start Date End Date Status Dosage POS HydrOXYzine Pamoate [facility] [address]-70 25 MG Orally 2 times a day October 01, 2014 SP 1 capsule as needed for anxiety SP Results No Known Results Summary Purpose [employer] Submission
== END 2019-02-28 11:05 | disposition home or self-care (01) ==
LOC: SDC 06:07
PROVIDERS: ATTEND Obstetrics & Gynecology
DX: O41.8X20 Other specified disorders of amniotic fluid and membranes, second trimester, not applicable or unspecified (principal); O36.4XX0 Maternal care for intrauterine death, not applicable or unspecified; Z3A.17 17 weeks gestation of pregnancy; Z87.891 Personal history of nicotine dependence; Z79.891 Long term (current) use of opiate analgesic; Z79.899 Other long term (current) drug therapy; Z80.1 Family history of malignant neoplasm of trachea, bronchus and lung
CPT/HCPCS: 86850; 86900; 86901; 87081; 88305

== ENCOUNTER → 2022-07-08 | Outpatient (CLI) | payer MEDICAID ==
[~2022-07-08] MED LIST changes: +ALPR0.5T PO; +HYDR-4226 PO; +IBUP-1773 PO; -OXYC-465 PO; +OXYC-556 PO
--- NOTE | 2022-07-08 17:50 | Diagnostic Imaging Report ---
INDICATION: , 21 weeks 3 days, anatomic survey. TECHNIQUE: Multiple real-time grayscale images were obtained over the gravid uterus. COMPARISON: None. FINDINGS: The cervix measures 3.9 cm in length. The placenta is anterior. There does appear to be a brief contraction posteriorly. Presentation is cephalic. The cord insertion is seen. The bladder is seen. The heart rate measures 150 BPM. The stomach is seen. The two umbilical arteries are seen demonstrating a three-vessel cord. The nose and lips are seen. The cerebellum is seen. The cisterna magna is seen. The lateral ventricle is seen. The upper and lower spine is seen. The right and left ventricular outflow tracts are seen. A four-chamber heart is seen. The kidneys are seen. The amniotic fluid index measures 11.1 cm. Biometrical measurements are as follows: Biparietal 4.76 cm, age 20 weeks 3 days. Head circumference 18.56 cm, age 21 weeks 0 days. Abdominal circumference 16.57 cm, age 21 weeks 5 days. Femur length 3.66 cm, age 21 weeks 5 days. Sonographic estimate age: 21 weeks 2 days. Sonographic estimated date of delivery: 11/16/2022. Estimated Weight: 428 gm (+/- 63 gm). LMP percentile: 48%. heart rate: 150 beats per minute. number: 1 of 1. IMPRESSION: 1. Single live intrauterine gestation measuring at 21 weeks and 2 days which is within range of the clinical dates. 2. No abnormality seen on anatomic survey. Dictated by: Dictated on workstation # [id number]
== END ==
LOC: RAD 11:42
PROVIDERS: ATTEND Obstetrics & Gynecology
DX: Z36.87 Encounter for antenatal screening for uncertain dates (principal); Z3A.21 21 weeks gestation of pregnancy
CPT/HCPCS: 76805

== ENCOUNTER → 2022-09-24 | Outpatient (CLI) | payer MEDICAID | LOC: LABNPT 13:04 | PROVIDERS: ATTEND Nurse Practitioner Women's Health | DX: O13.9 Gestational [pregnancy-induced] hypertension without significant proteinuria, unspecified trimester (principal); Z3A.00 Weeks of gestation of pregnancy not specified | CPT/HCPCS: 82570; 84156 ==

== ENCOUNTER → 2022-10-07 | Outpatient (CLI) | payer MEDICAID | LOC: LABNPT 14:11 | PROVIDERS: ATTEND Nurse Practitioner Women's Health | DX: Z36.85 Encounter for antenatal screening for Streptococcus B (principal); O13.9 Gestational [pregnancy-induced] hypertension without significant proteinuria, unspecified trimester; Z3A.00 Weeks of gestation of pregnancy not specified | CPT/HCPCS: 82570; 84156 ==

== ENCOUNTER 2022-11-10 06:36 | Inpatient (IN) | payer MEDICAID ==
[2022-11-10] VITALS (45 sets, daily range): BP systolic 106–142; BP diastolic 57–105
[~2022-11-10] VITALS: Ht 165 cm; Wt 103.5 kg
--- OUTSIDE RECORDS SUMMARY | 2022-11-10 06:39 | XMS REPORT | Clinical Summary ---
Author Author [facility] Organization [facility] Address Unknown Phone Unavailable Care Team Providers Care Joint Terminal Attack Controller Name Role Phone No Pcp, Na PCP Unavailable Source Comments Some departments are not documenting in the electronic medical record. If you d o not see the information that you expected, contact Release of Information in [facility] Health Information Management department at [phone] for further assistan ce in locating additional records.[facility] Allergies Not on File Medications No known medications Active Problems No known active problems Social History Date Tobacco Use Types Packs/Day Years Used Smoking Tobacco: Never Assessed Date Recorded Alcohol Use Answer Alcohol Use Not on file Male: 9+ ounces (15+ Standard Drinks) per week Not o n file Threshold Female: 4.8+ ounces (8+ Standard Drinks) per week 0 Threshold Date Recorded Sex and Gender Information Value Sex Assigned at Not on file Gender Identity Not on file Sexual Orientation Not on file Obstetrics History Last Filed Vital Signs Not on file Plan of Treatment Health Maintenance Due Date Last Done Comments COVID-19 VACCINE (#1) 1992 HIV SCREENING 01/31/2007 HEPATITIS C SCREENING 01/31/2010 PHYSICAL (COMPREHENSIVE) 01/31/2010 EXAM CERVICAL CANCER SCREENING 01/31/2013 DTAP/TDAP VACCINES (4 - 03/28/2018 03/28/2008, Td or Tdap) 02/20/1998, 03/08/1996 DEPRESSION SCREENING 05/16/2022 INFLUENZA VACCINE (Season 02/13/2023 Ended) PNEUMOCOCCAL VACCINE 0-64 Aged Out No longer el igible based on patient's age to YRS complete this topic Results Not on filefrom Last 3 Months Insurance Type Payer Benefit Subscriber ID Effective Phone Address Plan / Dates Group Medicaid UHC MEDICAID [place] UHC [id number] 2018-P [address] [place] [address] Care Teams Start Date End Date Joint Terminal Attack Controller Relationship Specialty 02/23/19 No Pcp, Na PCP - General
--- NOTE | 2022-11-10 07:18 | History & Physical-OB ---
OB - Chief Complaint & HPI Date/Time Date of Admission: Date of Admission: Nov 10, 2022 at 06:36 Date seen by a Provider: Nov 10, 2022 Time Seen by a Provider: 07:20 Chief Complaint/History OB-Reason for Admission/Chief: Induction of Labor Hx : 3 Hx Para: 1 Expected Date of Delivery: Nov 08, 2022 Gestational Age in Weeks: 40 Gestational Age in Days: 2 Indication for induction: post dates Admission Nurse Assessment Rev: Yes History of Labs O pos Antibody neg RI RPR NR HBsAg NR HIV NR GC neg GBS neg Allergies and Home Medications Allergies Coded Allergies: No Known Drug Allergies (Unverified , 12/29/15) Patient Home Medication List Home Medication List Reviewed: Yes Alprazolam (Xanax) 0.5 Mg Tablet, 0.5 MG PO Q6H PRN for ANXIETY Prescribed by: YAMILET BERRY on 02/28/19716 Docusate Sodium (Docusate Sodium) 100 Mg Capsule, 100 MG PO BID Prescribed by: HARINI MCCLOUD on 01/21/16730 Hydrocodone/Acetaminophen (Hydrocodone/Acetaminophen 5 MG/325 MG TAB) 1 Each Tablet, 1 TAB PO Q4-6HR Prescribed by: YAMILET BERRY on 02/28/19716 Ibuprofen (Ibuprofen) 600 Mg Tablet, 600 MG PO Q6H Prescribed by: YAMILET BERRY on 02/28/19716 OB - History Hx of Present Care: Yes Ultrasounds: Normal mid trimester US Obstetrical Complications: None Medical Complications: None Delivery History Hx Blood Disorders: No Adverse Rxn to Tranfusion: No Patient Past Medical History nc Immunizations Tetanus Booster (TDap): Unknown OB - Admission Exam Physical Exam HEENT: NCAT Heart: Rhythm Normal Lungs: Clear Abdomen: Gravid Extremities: Normal Reflexes: Normal Cervical Dilatation: 3cm Effacement: 50% Station: -2 Membranes: Intact Heart Rate: 130's Accelerations: Accelerations Present Decelerations: No Decelerations Short Term Variability: Present Penitentiary Variability: Average (6-25) Contractions on Admission: 6-10 Minutes Apart Intensity: Mild Vasquez Scoring Tool (Modified) Dilation (cm): 3-4cm (2) Effacement (%): 51-79% (2) Descent/Station: -2 (1) Cervix Consistency: Soft (2) Cervix Position: Anterior (2) Add 1 point for: Each previous vaginal delivery (1) Vasquez Score: 9 OB - Assessment/Plan/Diagnosis Assessment Assessment: induction of labor Admission Dx 32 yo @ 40.2 weeks gestation GBS neg Admission Status: Inpatient Order (span 2 midnights) Reason for Inpatient Admission: IOL at 40 weeks Plan Plan: Induction Induction Method: YAMILET TATUM DO Nov 10, 2022 07:18
[2022-11-10] MEDS ORDERED: OXYTOCIN PRE-MIX DRIP 500 ML IV SCH (07:30)
[2022-11-10] MEDS ORDERED: D5 LR IV SOLUTION 1,000 ML IV SCH (07:30)
[2022-11-10 08:03] LABS: BASOPHILS % (AUTO) 0 % (0-10); EOSINOPHILS # (AUTO) 0.1 10^3/uL (0.0-0.3); EOSINOPHILS % (AUTO) 1 % (0-10); HEMATOCRIT 39 % (35-52); HEMOGLOBIN 12.9 g/dL (11.5-16.0); LYMPHOCYTES # (AUTO) 1.3 10^3/uL (1.0-4.0); LYMPHOCYTES % (AUTO) 14 % (12-44); MEAN CORPUSCULAR HEMOGLOBIN 28 pg (25-34); MEAN CORPUSCULAR HGB CONC 33 g/dL (32-36); MEAN CORPUSCULAR VOLUME 85 fL (80-99); MEAN PLATELET VOLUME 11.9 fL (9.0-12.2); MONOCYTES # (AUTO) 0.6 10^3/uL (0.0-1.0); MONOCYTES % (AUTO) 6 % (0-12); NEUTROPHILS # (AUTO) 7.4 10^3/uL (1.8-7.8); NEUTROPHILS % (AUTO) 78 % (42-75); PLATELET COUNT 174 10^3/uL (130-400); WHITE BLOOD COUNT 9.5 10^3/uL (4.3-11.0)
[2022-11-10] MEDS ORDERED: fentaNYL 2 mcg/ml BUPIVA 0.125 100 ML ONE (08:09)
[2022-11-10] MEDS ORDERED: LACTATED RINGERS 1,000 ML IV ONE (08:10)
[2022-11-10] MEDS ORDERED: PREN-37 PO (09:08)
[2022-11-10] MEDS ORDERED: NALOXONE 0.4 MG/ML 1 ML (NARCAN) VIAL IV PRN ×3 (09:15→13:45)
[2022-11-10] MEDS ORDERED: diphenhydrAMINE 50 MG/ML INJ (BENADRYL) IV PRN (09:15)
[2022-11-10] MEDS ORDERED: fentaNYL 2 mcg/ml BUPIVA 0.125 100 ML EPI SCH (09:15)
[2022-11-10] MEDS ORDERED: LACTATED RINGERS 1,000 ML IV SCH (09:15)
[2022-11-10] MEDS ORDERED: METOCLOPRAMIDE INJ 10 MG/2 ML (REGLAN) IV PRN (09:15)
[2022-11-10] MEDS ORDERED: ONDANSETRON 4 MG/2 ML (SDV) Z0FRAN IV PRN (09:15)
[2022-11-10] MEDS ORDERED: LIDOCAINE 1% INJ 10 ML VIAL ONE (13:05)
[2022-11-10] MEDS ORDERED: MEASLES,MUMPS,RUBELLA 1 EA INJ SQ ONE (13:45)
[2022-11-10] MEDS ORDERED: BENZOCAINE/MENTHOL (DERMOPLAST) 56 ML CAN TP PRN (13:45)
[2022-11-10] MEDS ORDERED: WITCH HAZEL(TUCKS) 40 EA JAR TOP PRN (13:45)
[2022-11-10] MEDS ORDERED: DIBUCAINE 1% OINTMENT 28 GM TUBE TOP PRN (13:45)
[2022-11-10] MEDS ORDERED: TETANUS,DIPTH,PERTUSS P/F (BOOSTRIX) 0.5 ML VIAL IM ONE (13:45)
--- NOTE | 2022-11-10 13:45 | Discharge Inst-Women's Service ---
Discharge Inst-Women's Serv Depart Medication/Instructions New, Converted or Re-Newed RX: Transmitted to Pharmacy Final Diagnosis PPD 1 NVD Problems Reviewed?: Yes Consults/Follow Up Additional Follow Up: Yes Orders/Referrals Dr. Berry in 6 weeks Activity Activity: Activity as Tolerated Driving Instructions: No Driving for 1 Week NO SMOKING: NO SMOKING Nothing Inside Vagina: No Douching, No [place], No Tampons Diet Discharge Diet: No Restrictions Symptoms to Report to : Bleeding Excessive, Pain Increased, Fever Over 101 Degrees F, Vaginal Bleeding Increase, Questions/Concerns For Any Problems or Questions: Contact Your Physician YAMILET BERRY DO Nov 10, 2022 13:45
[2022-11-10] MEDS ORDERED: ACET-93 PO (13:46)
[2022-11-10] MEDS ORDERED: DOCU100C37 PO (13:46)
[2022-11-10] MEDS ORDERED: DIBU30OI TOP (13:46)
[2022-11-10] MEDS ORDERED: IBUP-844 PO (13:46)
[2022-11-10] MEDS ORDERED: FERR325T24 PO (13:46)
[2022-11-10] MEDS ORDERED: BENZ78AE5 TP (13:46)
--- NOTE | 2022-11-10 13:52 | OB Labor & Delivery Record ---
L&D History Date of Service Date of Service: Nov 10, 2022 History Expected Date of Delivery: Nov 08, 2022 Gestational Age in Weeks: 40 Hx : 3 Hx Para: 1 Complications Events: Routine care Operative Indications (Cesarea: N/A-Vaginal Delivery Intrapartal Events: None L&D Stage1 Stage One Onset of Labor - Date: Nov 10, 2022 Monitors and Tracing Monitor Mode: Internal Heart Rate: 135 Monitor Accelerations: Uniform Monitor Decelerations: Variable Station: -1 Jail Variability: Average (6-10) Short Term Variability: Present Presentation: Vertex Vital Signs VS - Last 72 Hours, by Label 11/10/22 11/10/22 11/10/22 11/10/22 07:22 08:44 08:47 08:50 Temp 36.7 Pulse 93 95 90 74 Resp 18 18 18 18 B/P (MAP) 141/75 (97) 138/84 (102) 122/78 (93) Pulse Ox 98 100 100 O2 Delivery Room Air Room Air Room Air Room Air 11/10/22 11/10/22 11/10/22 11/10/22 08:53 08:58 09:02 09:05 Pulse 70 78 79 87 Resp 18 18 18 18 B/P (MAP) 126/78 (94) 128/85 (99) 131/74 (93) 121/72 (88) Pulse Ox 99 99 O2 Delivery Room Air Room Air Room Air Room Air 11/10/22 11/10/22 11/10/22 11/10/22 09:08 09:11 09:14 09:17 Pulse 81 102 88 91 Resp 18 18 18 18 B/P (MAP) 131/74 (93) 123/78 (93) 142/69 (93) 130/70 (90) Pulse Ox 99 98 98 O2 Delivery Room Air Room Air Room Air Room Air 11/10/22 11/10/22 11/10/22 11/10/22 09:20 09:23 09:26 09:30 Pulse 76 78 100 76 Resp 18 18 18 18 B/P (MAP) 129/66 (87) 119/71 (87) 120/68 (85) 121/71 (88) Pulse Ox 98 99 99 O2 Delivery Room Air Room Air Room Air Room Air 11/10/22 11/10/22 11/10/2228/23 09:33 09:36 09:39 09:54 Pulse 91 85 79 85 Resp 18 18 18 18 B/P (MAP) 123/74 (90) 126/73 (90) 123/73 (90) 121/77 (92) Pulse Ox 100 98 99 O2 Delivery Room Air Room Air Room Air Room Air 11/10/22 11/10/22 11/10/22 11/10/22 10:08 10:23 10:37 10:53 Pulse 75 72 73 75 Resp 18 18 18 18 B/P (MAP) 120/72 (88) 112/69 (83) 127/77 (94) 121/73 (89) Pulse Ox 99 99 99 100 O2 Delivery Room Air Room Air Room Air Room Air 11/10/22 11/10/22 11/10/22 11/10/22 11:09 11:23 11:38 11:53 Pulse 75 72 68 78 Resp 18 18 18 18 B/P (MAP) 112/66 (81) 112/58 (76) 109/60 (76) 106/61 (76) Pulse Ox 100 100 100 100 O2 Delivery Room Air Room Air Room Air Room Air 11/10/22 12:07 Pulse 79 Resp 18 B/P (MAP) 106/63 (77) Pulse Ox 100 O2 Delivery Room Air Rupture of Membranes Spontaneous Ruture of Membrane: No Amniotic Membrane Rupture Time: 0743 Amniotic Membrane Fluid Desc.: Clear Vaginal Bleeding Description: Normal Show Induction/Anesthesia Epidural Cath Placement - Time: 0850 Progress/Notes Patient admitted for post dates IOL. AROM performed followed by pitocin augmentation and epidural placement. She rapidly progressed to complete and + 2 station. L&D Stage2 Stage Two Stage II Date: Nov 10, 2022 Monitors and Tracing Monitor Mode: Internal Heart Rate: 135 Monitor Accelerations: Uniform Monitor Decelerations: Variable Jail Variability: Average (6-10) Short Term Variability: Present Position: Right Occiput Anterior Presentation: Vertex Cord Descript/Complications Cord Vessel Description: 3 Vessels Delivery Type Delivery Method: Spontaneous Vaginal Anterior Shoulder: Right Episiotomy/Perineal Laceration Laceraction(s)/Extensions: Yes Episiotomy Description: Perineal Extension/lac, 2nd degree Degree (describe repair) laceration repaired using 3-0 rapid vicryl suture in usual fashion. Condition of Delivery 1 minute Comment: 8 5 minute Comment: 9 Notes Live female infant weight pending Condition of Condition of Infant: Living Exam: No Observed Abnormalities Resuscitation Resuscitation: N/A - Spontaneous Resp L&D Stage3 Stage Three Stage III Date: Nov 10, 2022 Pictocin Pitocin Administration mu/min: 2 Pitocin ml/hr: 2 Pitocin Administration Comment: 30 mu wide open after delivery of placenta Placenta Delivery Placenta Delivery: Spontaneous Delivery Summary Summary Estimated blood loss (mL): 200 Attending at delivery: Yamilet Berry DO Condition of Delivery Examined: Cervix Examined, Uterus Explored Post Hemorrhage: No Condition of Mother stable Condition of (s) stable YAMILET BERRY DO Nov 10, 2022 13:52
[2022-11-10] MEDS ORDERED: CATHETER FLUSH 10 ML SYR IV SCH (14:00)
[2022-11-10] MEDS: ACETAMINOPHEN 500 MG TAB (TYLENOL) PO SCH ×2 (14:07→22:42)
[2022-11-10] MEDS: OXYTOCIN PRE-MIX DRIP 500 ML IV SCH (14:07)
[2022-11-10] MEDS: IBUPROFEN 600 MG (MOTRIN) TAB PO SCH ×2 (14:07→20:29)
[2022-11-10] MEDS: DOCUSATE SODIUM 100 MG (COLACE) CAP PO SCH (20:29)
[2022-11-10] MEDS: CATHETER FLUSH 10 ML SYR IV SCH ×2 (20:29→22:00)
[2022-11-11 00:51] VITALS: BP 119/71
[2022-11-11] MEDS: OXYTOCIN PRE-MIX DRIP 500 ML IV SCH (01:14)
[2022-11-11] MEDS: IBUPROFEN 600 MG (MOTRIN) TAB PO SCH ×3 (02:33→15:12)
[2022-11-11 04:47] VITALS: BP 121/77
[2022-11-11 05:53] LABS: BASOPHILS # (AUTO) 0.1 10^3/uL (0.0-0.1); BASOPHILS % (AUTO) 1 % (0-10); EOSINOPHILS # (AUTO) 0.1 10^3/uL (0.0-0.3); EOSINOPHILS % (AUTO) 1 % (0-10); HEMATOCRIT 33 % (35-52); HEMOGLOBIN 10.8 g/dL (11.5-16.0); LYMPHOCYTES # (AUTO) 1.7 10^3/uL (1.0-4.0); LYMPHOCYTES % (AUTO) 19 % (12-44); MEAN CORPUSCULAR HEMOGLOBIN 28 pg (25-34); MEAN CORPUSCULAR HGB CONC 33 g/dL (32-36); MEAN CORPUSCULAR VOLUME 86 fL (80-99); MEAN PLATELET VOLUME 12.2 fL (9.0-12.2); MONOCYTES # (AUTO) 0.7 10^3/uL (0.0-1.0); MONOCYTES % (AUTO) 8 % (0-12); NEUTROPHILS # (AUTO) 6.5 10^3/uL (1.8-7.8); NEUTROPHILS % (AUTO) 72 % (42-75); PLATELET COUNT 146 10^3/uL (130-400)
[2022-11-11] MEDS: ACETAMINOPHEN 500 MG TAB (TYLENOL) PO SCH ×2 (06:35→15:12)
[2022-11-11] MEDS ORDERED: PRENATAL VITAMIN 1 EA TAB PO SCH (07:00)
[2022-11-11 08:15] VITALS: BP 124/77
[2022-11-11] MEDS: DOCUSATE SODIUM 100 MG (COLACE) CAP PO SCH (08:17)
[2022-11-11] MEDS ORDERED: FERROUS SULF 325 MG (IRON) TAB PO SCH (09:00)
--- NOTE | 2022-11-11 09:02 | Postpartum Progress Note ---
Note Note Day # 1 Subjective: Patient is without complaints. Ambulating, voiding. Tolerating a regular diet without nausea or vomiting. Normal lochia. Pain is well controlled with oral pain medications. Breast feeding. [] Objective: [] Physical Exam: General - Alert and oriented, no apparent distress Breasts symmetrical no erythema or engorgement Abdomen - Soft, appropriately tender to palpation, non-distended, fundus firm at umbilicus Lochia minimal Extremities - no edema, negative Young's bilaterally Assessment: [] post- day # 1, status post vaginal delivery. Recovering well, hemodynamically stable Plan: Routine care. Encourage breast feeding. Encourage ambulation. Ferrous sulfate supplementation. Plan for discharge today Vitals - Labs Vital Signs - I&O Vital Signs Date Time Temp Pulse Resp B/P (MAP) Pulse Ox O2 Delivery O2 Flow Rate FiO2 11/11/22 04:47 36.5 74 18 121/77 (92) 99 Room Air 11/11/22 00:51 36.8 75 18 119/71 (87) 98 Room Air 11/10/22 20:25 36.6 76 18 119/71 (87) 97 Room Air 11/10/22 16:37 76 18 119/65 (83) Room Air 11/10/22 16:22 64 18 114/61 (78) Room Air 11/10/22 16:07 76 18 119/57 (77) Room Air 11/10/22 15:52 74 18 115/60 (78) Room Air 11/10/22 15:37 80 18 128/68 (88) Room Air 11/10/22 15:22 66 18 119/68 (85) Room Air 11/10/22 15:08 78 18 121/63 (82) Room Air 11/10/22 14:52 76 18 123/76 (92) Room Air 11/10/22 14:37 36.9 85 18 127/78 (94) Room Air 11/10/22 14:22 86 18 128/68 (88) Room Air 11/10/22 14:07 76 18 132/72 (92) Room Air 11/10/22 13:53 80 18 138/83 (101) Room Air 11/10/22 13:40 36.9 11/10/22 13:08 36.2 83 18 131/105 (114) 100 Room Air 11/10/22 12:39 74 18 131/74 (93) 100 Room Air 11/10/22 12:22 79 18 139/80 (99) 100 Room Air 11/10/22 12:07 79 18 106/63 (77) 100 Room Air 11/10/22 11:53 78 18 106/61 (76) 100 Room Air 11/10/22 11:38 68 18 109/60 (76) 100 Room Air 11/10/22 11:23 72 18 112/58 (76) 100 Room Air 11/10/22 11:09 75 18 112/66 (81) 100 Room Air 11/10/22 10:53 75 18 121/73 (89) 100 Room Air 11/10/22 10:37 73 18 127/77 (94) 99 Room Air 11/10/22 10:23 72 18 112/69 (83) 99 Room Air 11/10/22 10:08 75 18 120/72 (88) 99 Room Air 11/10/22 09:54 85 18 121/77 (92) 99 Room Air 11/10/22 09:39 79 18 123/73 (90) 98 Room Air 11/10/22 09:36 85 18 126/73 (90) Room Air 11/10/22 09:33 91 18 123/74 (90) 100 Room Air 11/10/22 09:30 76 18 121/71 (88) 99 Room Air 11/10/22 09:26 100 18 120/68 (85) 99 Room Air 11/10/22 09:23 78 18 119/71 (87) 98 Room Air 11/10/22 09:20 76 18 129/66 (87) Room Air 11/10/22 09:17 91 18 130/70 (90) 98 Room Air 11/10/22 09:14 88 18 142/69 (93) Room Air 11/10/22 09:11 102 18 123/78 (93) 98 Room Air 11/10/22 09:08 81 18 131/74 (93) 99 Room Air 11/10/22 09:05 87 18 121/72 (88) Room Air 11/10/22 09:02 79 18 131/74 (93) 99 Room Air 11/10/22 08:58 78 18 128/85 (99) 99 Room Air I & O 11/11/22 07:00 Intake Total 1000 ml Balance 1000 ml Labs Laboratory Tests 11/11/22 04:50: White Blood Count 9.0, Red Blood Count 3.83, Hemoglobin 10.8L, Hematocrit 33L, Mean Corpuscular Volume 86, Mean Corpuscular Hemoglobin 28, Mean Corpuscular Hemoglobin Concent 33, Red Cell Distribution Width 14.1, Platelet Count 146, Mean Platelet Volume 12.2, Immature Granulocyte % (Auto) 0, Neutrophils (%) (Auto) 72, Lymphocytes (%) (Auto) 19, Monocytes (%) (Auto) 8, Eosinophils (%) (Auto) 1, Basophils (%) (Auto) 1, Neutrophils # (Auto) 6.5, Lymphocytes # (Auto) 1.7, Monocytes # (Auto) 0.7, Eosinophils # (Auto) 0.1, Basophils # (Auto) 0.1, Immature Granulocyte # (Auto) 0.0 NATALIA HARRIS 29, 2023 09:02
--- NOTE | 2022-11-11 10:47 | Anesthesia-Regional Post-Op ---
Regional Patient Condition Mental Status: Alert, Oriented x3 Circulation: Same as Pre-Op Headache: Absent Sensation: Full Recovery Motor Block: Absent Post Op Complications Complications None Follow Up Care/Instructions Patient Instructions None needed. Anesthesia/Patient Condition Patient is doing well, no complaints, stable vital signs, no apparent adverse anesthesia problems. No complications reported per nursing. CULLEN YING CRNA Nov 11, 2022 10:47
[2022-11-11 15:15] VITALS: BP 118/77
[2022-11-11 17:25] VITALS: BP 118/77
== END 2022-11-11 17:25 | disposition home or self-care (01) | DRG 807 ==
LOC: LDRP 06:36
PROVIDERS: ADMIT Obstetrics & Gynecology; ATTEND Obstetrics & Gynecology
PROC: 10E0XZZ Delivery of Products of Conception, External Approach (ICD-10-PCS; principal; 2022-11-10)
PROC: 0KQM0ZZ Repair Perineum Muscle, Open Approach (ICD-10-PCS; 2022-11-10)
PROC: 10907ZC Drainage of Amniotic Fluid, Therapeutic from Products of Conception, Via Natural or Artificial Opening (ICD-10-PCS; 2022-11-10)
PROC: 0W8NXZZ Division of Female Perineum, External Approach (ICD-10-PCS; 2022-11-10)
DX: O48.0 Post-term pregnancy (principal); Z37.0 Single live birth; Z3A.40 40 weeks gestation of pregnancy; O70.1 Second degree perineal laceration during delivery; Z28.310 Unvaccinated for COVID-19
CPT/HCPCS: 36415; 85025; 86780; 86850; 86900; 86901